=== PATIENT | male | born 1960 | race Caucasian/White ===

== ENCOUNTER 2016-08-21 19:09 | Emergency (ER) | payer OTHER ==
[~2016-08-21] VITALS: Ht 180.3 cm; Wt 107.2 kg
[~2016-08-21 19:09] MED LIST: ASPI81TA2 PO; CITA-51 PO; METO25TA6 PO; ONDA-55 PO; TAMS0.4C47 PO; TOPI100T43 PO
[2016-08-21 19:14] VITALS: Ht 180.3 cm; Wt 107.2 kg
--- OUTSIDE RECORDS SUMMARY | 2016-08-21 19:14 | XMS REPORT | Referral Summary ---
Author Author [facility] Organization [facility] Address Unknown Phone Unavailable Care Team Providers Care Director Script Name Role Phone Monique Holguin Primary Care Physician [phone] Encounter VC Date(s): 05/11/16 - 05/11/16 [facility] [address] [place] [id number] Discharge Diagnosis: Right foot pain Discharge Diagnosis: Gout Discharge Diagnosis: BPH with urinary obstruction Discharge Diagnosis: Urine incontinence Discharge Disposition: 01-Home or Self Care Attending Physician: Angel Holguin MD Admitting Physician: Angel Holguin MD Vital Signs Most recent to 1 oldest [Reference Range]: Peripheral Pulse 71 bpm Rate [60-100 bpm] (05/11/16 2:40 PM) Blood Pressure 120/70 mmHg [90-140/60-90 mmHg] (05/11/16 2:40 PM) Problem List Condition Effective Dates Status Health Status Informant Alcohol < 10/30/13 Resolved abuse(Confirmed) Anxiety(Confirmed) Active Anxiety(Confirmed) Active BPH (benign Active prostatic hyperplasia)(Confirm ed) CVA (cerebral < 11/07/13 Resolved infarction)(Confirme d) GERD Active (gastroesophageal reflux disease)(Confirmed) GERD Active (gastroesophageal reflux disease)(Confirmed) Gout(Confirmed) Active History of Active gout(Confirmed) History of Active migraine(Confirmed) H/O vitamin D Active deficiency(Confirmed ) Hemiplegia Active (disorder)(Confirmed )1 HTN Active (hypertension)(Confi rmed) hx of alcohol Resolved abuse(Confirmed) Hypercholesteremia(C < 10/30/13 Resolved onfirmed) Hyperlipidemia(Confi Active rmed) Hypertension(Confirm Active ed) Migraine(Confirmed) Active Depression(Confirmed Active ) Obese(Confirmed) < 10/30/13 Resolved Obesity(Confirmed) Active patient Post traumatic Active stress disorder (PTSD)(Confirmed) Depression(Confirmed Active ) 1Right hemiparetic s/p CVA 2013 Allergies, Adverse Reactions, Alerts No Known Allergies Medications acetaminophen 325 mg oral tablet 2 tabs, Oral, q6hr, as needed for pain, 0 Refill(s) Start Date: 11/08/13 Status: Ordered aspirin 81 mg, Oral, Daily, 0 Refill(s) Start Date: 12/09/15 Status: Ordered citalopram 40 mg oral tablet See Instructions, TAKE ONE TABLET BY MOUTH DAILY, # 30 tabs, 5 Refill(s), eRx: [facility] #[id number], TAKE ONE TABLET BY MOUTH DAILY Start Date: 11/11/15 Status: Ordered Flomax 0.4 mg oral capsule 0.4 mg 1 caps, Oral, Daily, # 30 caps, 6 Refill(s), Pharmacy: [facility] # [id number], 1 caps Oral Daily Start Date: 10/09/15 Status: Ordered meloxicam 15 mg oral tablet 15 mg 1 tabs, Oral, Daily, # 10 tabs, 0 Refill(s), Pharmacy: [facility] # [id number], 1 tabs Oral Daily Start Date: 05/11/16 Status: Ordered Metoprolol Tartrate 25 mg oral tablet 25 mg 1 tabs, Oral, BID, # 60 tabs, 6 Refill(s), Pharmacy: [facility] # [id number], 1 tabs Oral BID,x30 days Start Date: 12/18/15 Stop Date: 07/15/16 Status: Ordered ondansetron 4 mg oral tablet 4 mg 1 tabs, Oral, q8hr, as needed for nausea/vomiting, # 20 tabs, 0 Refill(s), Pharmacy: [facility] #[id number], 1 tabs Oral q8hr,PRN:as needed for nausea/ vomiting Start Date: 10/09/15 Status: Ordered topiramate 100 mg oral tablet 150 mg 1.5 tabs, Oral, BID, # 90 tabs, 6 Refill(s), Pharmacy: [facility] # [id number], 1.5 tabs Oral BID Start Date: 10/09/15 Status: Ordered Tums 500 mg oral tablet, chewable 2 tabs, Chewed, QID, 0 Refill(s) Start Date: 10/31/13 Status: Ordered Results Urinalysis Most recent to 1 oldest [Reference Range]: UA Color Yellow (05/11/16 3:48 PM) UA Appear Clear (05/11/16 3:48 PM) UA pH [5.0-8.0] 5.5 (05/11/16 3:48 PM) UA Leuk Est Negative [Negative] (05/11/16 3:48 PM) UA Nitrite Negative [Negative] (05/11/16 3:48 PM) UA Protein Negative [Negative] (05/11/16 3:48 PM) UA Glucose Negative [Negative] (05/11/16 3:48 PM) UA Ketones Negative [Negative] (05/11/16 3:48 PM) UA Urobilinogen 0.2 mg/dL [<1.0 mg/dL] (05/11/16 3:48 PM) UA Bili [Negative] Negative (05/11/16 3:48 PM) UA Blood [Negative] Negative (05/11/16 3:48 PM) UA Spec Grav 1.021 [1.003-1.030] (05/11/16 3:48 PM) Type Clean Catch (05/11/16 3:48 PM) Immunizations Given and Recorded Vaccine Date Status Refusal Reason tetanus/diphth/pertuss (Tdap) adult/adol 04/09/15 Given influenza virus vaccine, inactivated1 02/07/14 Recorded influenza virus vaccine, live 03/05/13 Given influenza virus vaccine, live 02/08/12 Given measles/mumps/rubella virus vaccine 03/05/05 Given tetanus/diphtheria/pertussis, acel(Tdap) 03/05/05 Recorded 1Result Comment: [02/07/2014] see scanned document Procedures Procedure Date Related Diagnosis Body Site COLORECTAL CANCER SCREENING; COLONOSCOPY ON 04/18/15 INDIVIDUAL NOT MEETING CRITERIA FOR HIGH RISK1 lap cholecystectomy 2013 Appendectomy Miscellaneous2 1Normal colonoscopy, repeat in 10 years 22 sinus surg Social History Social History Type Response Smoking Status Former smoker; Type: Cigarettes; Tobacco use per day: Less than Pack; Number of years: 11 1DC; 2011 Assessment and Plan Extracted from: Title: Acute OV-RT Foot Pain Author: Angel Holguin MD Date: 05/11/16 Impression and Plan Diagnosis BPH with urinary obstruction ([id number] N40.1, Discharge, Medical). Gout ([id number] M1A.9XX0, Discharge, Medical). Right foot pain ([id number] M79.671, Discharge, Medical). Urine incontinence ([id number] R32, Discharge, Medical). Orders Orders (Selected) Outpatient Orders Future (On Hold) Urinalysis with Culture if Indicated: Prescriptions Prescribed meloxicam 15 mg oral tablet: 15 mg=1 tabs, Oral, Daily, 10 tabs, 0 Refill(s).
--- OUTSIDE RECORDS SUMMARY | 2016-08-21 19:14 | XMS REPORT | Referral Summary ---
Author Author [facility] Organization [facility] Address Unknown Phone Unavailable Care Team Providers Care Laborer [employer]aging Name Role Phone Monique Holguin Primary Care Physician [phone] Encounter Date(s): 05/25/16 - 05/25/16 [facility] [address] [place], [place] [address] Discharge Diagnosis: BPH (benign prostatic hyperplasia) Discharge Disposition: 01-Home or Self Care Attending Physician: Curtis Hannah MD Admitting Physician: Curtis Hannah MD Vital Signs Most recent to 1 oldest [Reference Range]: Blood Pressure 110/72 mmHg [90-140/60-90 mmHg] (05/25/16 3:03 PM) Problem List Condition Effective Dates Status [...] DAILY, # 30 tabs, 5 Refill(s), eRx: [facility] #[id number], TAKE ONE TABLET BY MOUTH DAILY Start Date: 11/11/15 Status: Ordered Compazine 0 Refill(s) Start Date: 05/19/16 Status: Ordered Flomax 0.4 mg oral capsule 0.4 mg 1 caps, Oral, Daily, # 30 caps, 6 Refill(s), Pharmacy: [facility] # [id number], 1 caps Oral Daily Start Date: 10/09/15 Status: Ordered meloxicam 15 mg oral tablet 15 mg 1 tabs, Oral, Daily, # 10 tabs, 0 Refill(s), Pharmacy: [facility] # [id number], 1 tabs Oral Daily Start Date: 05/11/16 Status: Ordered Metoprolol Tartrate 25 mg oral tablet 25 mg 1 tabs, Oral, BID, # 60 tabs, 6 Refill(s), Pharmacy: [facility] # [id number], 1 tabs Oral BID,x30 days Start Date: 12/18/15 Stop Date: 07/15/16 Status: Ordered ondansetron 4 mg oral tablet 4 mg 1 tabs, Oral, q8hr, as needed for nausea/vomiting, # 20 tabs, 0 Refill(s), Pharmacy: [facility] #[id number], 1 tabs Oral q8hr,PRN:as needed for nausea/ vomiting Start Date: 10/09/15 Status: Ordered topiramate 100 mg oral tablet 150 mg 1.5 tabs, Oral, BID, # 90 tabs, 6 Refill(s), Pharmacy: [facility] # [id number], 1.5 tabs Oral BID Start Date: 10/09/15 Status: Ordered Tums 500 mg oral tablet, chewable 2 tabs, Chewed, QID, 0 Refill(s) Start Date: 10/31/13 Status: Ordered Results No data available for this section Immunizations Given and Recorded Vaccine Date Status Refusal Reason tetanus/diphth/pertuss (Tdap) adult/adol 04/09/15 Given influenza virus vaccine, inactivated1 02/07/14 Recorded influenza virus vaccine, live 03/05/13 Given influenza virus vaccine, live 02/08/12 Given measles/mumps/rubella virus vaccine 03/05/05 Given tetanus/diphtheria/pertussis, acel(Tdap) 03/05/05 Recorded 1Result Comment: [02/07/2014] see scanned document Procedures Procedure Date Related Diagnosis Body Site Cystourethroscopy (separate procedure).. 05/25/16 Simple uroflowmetry (UFR) (eg, stop-watch 05/25/16 flow rate, mechanical uroflowmeter).. COLORECTAL CANCER SCREENING; COLONOSCOPY ON 04/18/15 INDIVIDUAL NOT MEETING CRITERIA FOR HIGH RISK1 lap cholecystectomy 2013 Appendectomy Miscellaneous2 1Normal colonoscopy, repeat in 10 years 22 sinus surg Social History Social History Type Response Smoking Status Former smoker; Type: Cigarettes; Tobacco use per day: Less than Pack; Number of years: 11 1DC; 2011 Assessment and Plan Extracted from: Title: Office Visit Note Author: Curtis Hannah MD Date: 05/25/16 Assessment/Plan 55 yo M With LUTS secondary to BPH without any obstruction. 1.BPH (benign prostatic hyperplasia) Discussed the findings on cystoscopy and TRUS measurement. He had a jaffe shaped curve on uroflow PVR however he would like to have the TURP done to improve his dribbling. His biggest complaint is dribbling after urination. I explained to him that he may or not have improvement in his urination after the TURP procedure. Will schedule patient for green light laser TURP. Discussed the risks, benefits, alternatives and potential complications of the procedure, patient states understanding and is willing to proceed.
--- OUTSIDE RECORDS SUMMARY | 2016-08-21 19:14 | XMS REPORT | Continuity of Care Document ---
Author Author [facility] Organization [facility] Address Unknown Phone Unavailable Care Team Providers Care Wire Sawyer Name Role Phone SANDRA JASSO MD Primary Care Physician [phone] Insurance Providers Payer Name Policy Number Subscriber Name Relationship [facility] [id number] Luis Morgan 18 Self Problems Medical Problems Problem Onset Date Status Right hemiparesis Unknown Active Hypertension Unknown Active Hypercholesteremia Unknown Active Anxiety Unknown Active Depression Unknown Active History of stroke 02/28/2013 Active Gout attack Unknown Active Gout attack Unknown Active Migraine Unknown Active Migraine Unknown Active Migraine Unknown Active Sinusitis, acute frontal Unknown Active Hemiplegic migraine Unknown Active Hemiplegic migraine Unknown Active Acute urinary retention Unknown Active Adverse drug effect Unknown Active Migraine with aura and without status migrainosus, not intractable Unknown Active Migraine Unknown Active Surgical Problems Problem Onset Date Recorded Date/Time Status Acute calculous cholecystitis ~07/06/2013 07/08/2013 4:54pm Active Medications Medication Dose Route Sig Days/Qty Instructions Order Date Discontinued Date Status [Antidepressant] 08/08/09 02/28/13 Discontinued [B/P Med, Slows Hr] 08/08/09 02/28/13 Discontinued Nitroglycerin 1 Tab SL NEEDED 08/08/09 02/28/13 Discontinued [Reflux Med] 08/08/09 02/28/13 Discontinued Metoprolol Succinate 25 Mg PO DAILY 02/28/13 Active Citalopram Hydrobromide 60 Mg PO DAILY 02/28/13 Active [Plavix] 75 Mg PO DAILY 11/24/13 Active [Flomax] 0.4 PO DAILY 11/24/13 Active Hydrocodone/Acetaminophen 1-2 Tab PO Every 6 Hours PRN PAIN 30 Qty Active Topiramate 1 PO TWICE A DAY 12/19/13 Active Rizatriptan Benzoate 1 PO NEEDED 12/19/13 Active Pravastatin Sodium 20 Mg PO DAILY Take 1 tablet, by mouth, daily at bedtime. 12/19/13 Active Allopurinol 1 Tab PO DAILY 12/19/13 Active Lorazepam 0.5 Mg PO DAILY PRN ANXIETY 12/19/13 Active Social History Social History Problem Response Recorded Date/Time Hx Alcohol Use No 03/14/2014 9:30am Has the pt used tobacco in the last 12 months No 07/06/2013 8:06pm Tobacco Usage none 07/06/2013 1:32pm Query Response Start Date Stop Date Smoking Status Never smoker Hospital Discharge Instructions No hospital discharge instructions. Plan of Care No plan of care. Functional Status Query Response Date Recorded Physical Hygiene Self March 14, 2014 9:30am Disabilities Visual March 14, 2014 9:30am Devices Used Glasses March 14, 2014 9:30am Dressing Self March 14, 2014 9:30am Ambulation Self March 14, 2014 9:30am Diet Self March 14, 2014 9:30am Mental Status Alert Oriented March 14, 2014 9:30am Disabilities Visual March 14, 2014 9:30am Devices Used Glasses March 14, 2014 9:30am Physical Hygiene Self March 14, 2014 9:30am Dressing Self March 14, 2014 9:30am Ambulation Self March 14, 2014 9:30am Diet Self March 14, 2014 9:30am Allergies, Adverse Reactions, Alerts Allergen Type Severity Reaction Status Last Updated No Known Allergies Active 03/14/14 Immunizations Name Given Type Hx Influenza Vaccination Y FEB 2013 Historical Hx Pneumococcal Vaccination Y 2011 Historical Hx Tetanus, Diptheria, Pertussis < 5 YRS Historical Hx Influenza Vaccination Y FEB 2013 Historical Hx Tetanus, Diptheria, Pertussis < 5 YRS Historical Vital Signs Acute Vital Signs Vital Response Date/Time Temperature (Fahrenheit) 98.4 deg F (96.8 - 99.1) Temperature (Calculated Celsius) 36.48426 degrees C (36.0 - 37.3) Pulse Rate (adult) 76 bpm (60 - 100) Respiratory Rate 16 breaths/min (10 - 20) O2 Sat by Pulse Oximetry 96 % (90 - 100) Blood Pressure 136/84 mm Hg Height 5 ft 11 in Weight 238 lb Body Mass Index 33.0 kg/m^2 Results Test Source Date Result Interp. Ref. Range Comments Activated Partial Thromboplast Time February 28, 2013 7:20pm 33.8 SEC N 24-36 Alanine Aminotransferase (ALT/SGPT) July 07, 2013 4:49am 61 U/L N 21- 72 Albumin July 07, 2013 4:49am 3.9 G/DL N 3.5-5.0 Albumin/Globulin Ratio July 07, 2013 4:49am 1.5 RATIO N 1.1-2.2 Alkaline Phosphatase July 07, 2013 4:49am 64 U/L N 38-126 Amylase Level July 07, 2013 4:49am 60 U/L N 30-110 Anion Gap July 07, 2013 4:49am 10 MEQ/L N 5-15 Aspartate Amino Transf (AST/SGOT) July 07, 2013 4:49am 38 U/L N 17-59 B-Type Natriuretic Peptide August 08, 2009 9:25pm 20 PG/ML N 15-100 BUN/Creatinine Ratio July 07, 2013 4:49am 13 RATIO N 6-26 Basophils # (Auto) July 07, 2013 4:49am 0.0 T/MM3 N 0-0.2 Basophils (%) (Auto) July 07, 2013 4:49am 0.1 % N 0-2 Blood Urea Nitrogen July 07, 2013 4:49am 13.0 MG/DL N 9-20 Calcium Level July 07, 2013 4:49am 8.9 MG/DL N 8.4-10.2 Calculated Osmolality July 07, 2013 4:49am 274 MOSM/KG N 261-280 Carbon Dioxide Level July 07, 2013 4:49am 27 MEQ/L N 22-30 Chloride Level July 07, 2013 4:49am 105 MEQ/L N 98-107 Cholesterol Level March 01, 2013 4:15am 176 MG/DL N 132-199 Cholesterol/HDL Ratio March 01, 2013 4:15am 6.5 RATIO H 0-5.0 Creatinine July 07, 2013 4:49am 1.0 MG/DL N 0.8-1.5 Eosinophils # (Auto) July 07, 2013 4:49am 0.1 T/MM3 N 0-0.5 Eosinophils (%) (Auto) July 07, 2013 4:49am 0.6 % N 0-4 Globulin July 07, 2013 4:49am 2.6 G/DL N 2.4-3.6 Glucose Level July 07, 2013 4:49am 110 MG/DL N 75-110 Hematocrit July 07, 2013 4:49am 40.0 % L 41-53 Hemoglobin July 07, 2013 4:49am 14.0 GM/DL N 13.5-17.5 LDL Cholesterol, Calculated March 01, 2013 4:15am 111.4 N 66-159 Lipase July 07, 2013 4:49am 91 U/L N 23-300 Lymphocytes # (Auto) July 07, 2013 4:49am 1.7 T/MM3 N 1-4.8 Lymphocytes (%) (Auto) July 07, 2013 4:49am 15.1 % L 23-45 Mean Corpuscular Hemoglobin July 07, 2013 4:49am 31.5 UUG N 26-34 Mean Corpuscular Hemoglobin Concent July 07, 2013 4:49am 35.0 GM/DL N 31-37 Mean Corpuscular Volume July 07, 2013 4:49am 89.9 UM3 N 80-100 Mean Platelet Volume July 07, 2013 4:49am 10.4 UM3 N 9.4-12.4 Monocytes # (Auto) July 07, 2013 4:49am 1.0 T/MM3 H 0-0.8 Monocytes (%) (Auto) July 07, 2013 4:49am 8.8 % N 0-9.0 Neutrophils # (Auto) July 07, 2013 4:49am 8.4 T/MM3 H 1.8-7.7 Neutrophils (%) (Auto) July 07, 2013 4:49am 75.3 % H 33-66 Platelet Count July 07, 2013 4:49am 187 T/MM3 N 130-400 Potassium Level July 07, 2013 4:49am 3.8 MEQ/L N 3.6-5 Prolactin February 28, 2013 7:20pm 16.1 NG/ML - Normal Female (Non- ): 3.0-18.6 ng/ml;Males: 3.7-17.9 ng/ml Prothromb Time International Ratio February 28, 2013 7:20pm 0.97 N 0.86- 1.10 THERAPUTIC RANGE=2.00-3.00 FOR ANTI-THROMBOSIS THERAPUTIC RANGE=2.50- 3.50 FOR IMPLANTED VALVE RDW Standard Deviation July 07, 2013 4:49am 40.5 FL N 36.9-50.2 Red Blood Count July 07, 2013 4:49am 4.45 M/MM3 L 4.50-5.90 Sodium Level July 07, 2013 4:49am 142 MEQ/L N 134-144 Thyroid Stimulating Hormone (TSH) March 01, 2013 4:15am 1.16 MIU/L N 0.47-4.68 COMMENT blood in lab Total Bilirubin July 07, 2013 4:49am 0.60 MG/DL N 0.20-1.30 Total Protein July 07, 2013 4:49am 6.5 G/DL N 6.3-8.2 Triglycerides Level March 01, 2013 4:15am 188 MG/DL H 40-160 Troponin I February 28, 2013 7:20pm < 0.012 ng/ml 0-0.12 Uric Acid December 14, 2013 9:08am 5.1 MG/DL N 3.5-8.5 Urine Bilirubin July 07, 2013 2:10am Negative - Has specimen been collected/obtained? Y Urine Blood July 07, 2013 2:10am Negative - Has specimen been collected/obtained? Y Urine Collection Type July 07, 2013 2:10am Cleancatch-midstream - Has specimen been collected/obtained? Y Urine Color July 07, 2013 2:10am Yellow - Has specimen been collected/obtained? Y Urine Glucose (UA) July 07, 2013 2:10am Negative - Has specimen been collected/obtained? Y Urine Ketones July 07, 2013 2:10am Negative - Has specimen been collected/obtained? Y Urine Leukocyte Esterase July 07, 2013 2:10am Negative - Has specimen been collected/obtained? Y Urine Nitrite July 07, 2013 2:10am Negative - Has specimen been collected/obtained? Y Urine Protein July 07, 2013 2:10am Trace H - Has specimen been collected/obtained? Y Urine Specific [place] July 07, 2013 2:10am 1.010 L - Has specimen been collected/obtained? Y Urine Turbidity July 07, 2013 2:10am Clear - Has specimen been collected/obtained? Y Urine Urobilinogen July 07, 2013 2:10am 1.0 EU/DL - Has specimen been collected/obtained? Y Urine pH July 07, 2013 2:10am 7.5 - Has specimen been collected/ obtained? Y VLDL Cholesterol March 01, 2013 4:15am 37.6 MG/DL H 0-28 White Blood Count July 07, 2013 4:49am 11.1 T/MM3 H 4.5-11.0 Chemistry Specimen Hemolysis July 07, 2013 4:49am < 15 0-25 0-25: No Hemolysis.26-70: Slight Hemolysis - can falsely elevate K and Urine Protein. 71-285: Moderate Hemolysis - can falsely elevate K, Troponin I, CA 19-9, PTH, CSF GLucose, and Urine Protein, and can falsely decrease Phenytoin. 286-999: Gross Hemolysis - can falsely elevate K, Troponin I, CA 19-9, PTH, CSF Glucose, and Urine Protine, and can falsely decrease Phenytoin. Recommend specimen recollection. Urinalysis Comment July 07, 2013 2:10am Microscopic not ind. - Has specimen been collected/obtained? Y Glucometer February 28, 2013 7:31pm 79 mg/dL N 75-110 Lab Scanned Report December 14, 2013 12:55pm LAB TEST FORM REQUEST [id number] - HDL Cholesterol Direct March 01, 2013 4:15am 27 MG/DL L 40-60 Turbidity July 07, 2013 4:49am < 20 0-20 Glomerular Filtration Rate Calc July 07, 2013 4:49am 79 - Immature Granulocyte # (Auto) July 07, 2013 4:49am 0.01 T/MM3 N 0.00- 0.03 Immature Granulocyte % (Auto) July 07, 2013 4:49am 0.1 % N 0.0-0.5 Icterus Index July 07, 2013 4:49am < 2 0-7 ZC-Jpu-A-Type Natriuretic Peptide May 06, 2011 8:22am 68 PG/ML N 0- 175 Rule in cut points: <50 years old=450; 50-75 years old=900; >75 years old=1800; When utilizing ProBNP rule-in cut points, adjustment for impaired renal function is typically not required. Name: LUIS MORGAN Unit #: [id number] : 1960 Sex: M Loc / Svc: ED DOS: 01/13/14 Signed Report #: [id number] DIAGNOSTIC IMAGING REPORT TYPE OF EXAM: CT HEAD W/O CONTRAST Dictated By: BRAEDEN MALDONADO MD INDICATION: ITS.REASON: headache CT HEAD W/O CONTRAST: Comparison: February 28, 2013 Technique: Axial CT images through the head were performed without contrast. FINDINGS: The ventricles are of normal size, shape, and contour for the patient 's age. There are scattered areas of low attenuation in the white matter which most likely represent changes from chronic microvascular ischemia. The brainstem, cerebellum, and cerebral hemispheres otherwise have a normal morphology and CT attenuation. There is no evidence of midline displacement. No hemorrhage , signs of acute territorial stroke, mass effect, mass lesions, or edema is evident. The visualized portions of the skull base, midface, and calvarium demonstrate no abnormality. Acute air-fluid level in the frontal sinus. The tympanic and mastoid cavities appear normal. IMPRESSION: No acute intracranial abnormality or hemorrhage. Frontal sinusitis. There is a preliminary report by virtual radiologic. . Procedures Procedure Status Date Provider(s) THER/PROPH/DIAG INJ SC/IM completed 12/19/13 THER/PROPH/DIAG INJ SC/IM completed 12/19/13 THER/PROPH/DIAG INJ IV PUSH completed 01/28/14 TX/PRO/DX INJ NEW DRUG ADDON completed 01/28/14 TX/PRO/DX INJ NEW DRUG ADDON completed 01/28/14 TX/PRO/DX INJ NEW DRUG ADDON completed 01/28/14 TX/PRO/DX INJ SAME DRUG COMMUNITY RELATIONS OFFICER completed 01/28/14 THER/PROPH/DIAG IV INF INIT completed 02/17/14 TX/PRO/DX INJ NEW DRUG ADDON completed 02/17/14 TX/PRO/DX INJ NEW DRUG ADDON completed 02/17/14 TX/PRO/DX INJ NEW DRUG ADDON completed 02/17/14 EMERGENCY DEPT VISIT completed 02/17/14 [id number]"INJECTION, PROCHLORPERAZINE, UP TO 10 MG" completed 02/17/14"INJECTION, HYDROMORPHONE, UP TO 4 MG" completed 02/17/14 [id number]"INJECTION, KETOROLAC TROMETHAMINE, PER 15 MG" completed 02/17/14"INJECTION, MAGNESIUM SULFATE, PER 500 MG" completed 02/17/14"INFUSION, NORMAL SALINE SOLUTION , 250 CC" completed 02/17/14 Encounters Encounter Location Date/Time Departed Emergency Room [facility] 03/14/14 7:07am Departed Emergency Room [facility] 02/17/14 10:25am Departed Emergency Room [facility] 01/28/14 12:57pm Departed Emergency Room [facility] 01/13/14 2:10pm Departed Emergency Room [facility] 12/19/13 7:00pm Registered Clinic [facility] 12/14/13 9:17am Recent Diagnosis
--- OUTSIDE RECORDS SUMMARY | 2016-08-21 19:14 | XMS REPORT | Referral Summary ---
Author Author [facility] Organization [facility] Address Unknown Phone Unavailable Care Team Providers Care Cctv Technician Name Role Phone Monique Holguin Primary Care Physician [phone] Encounter VC Date(s): 01/19/16 - 01/19/16 [facility] [address] [place], [place] [address] Discharge Disposition: 01-Home or Self Care Attending Physician: Javon Sanabria MD Vital Signs No data available for this section Problem List Condition Effective Dates Status Health [...] DAILY, # 30 tabs, 5 Refill(s), eRx: [facility] #[id number], TAKE ONE TABLET BY MOUTH DAILY Start Date: 11/11/15 Status: Ordered Flomax 0.4 mg oral capsule 0.4 mg 1 caps, Oral, Daily, # 30 caps, 6 Refill(s), Pharmacy: [facility] # [id number], 1 caps Oral Daily Start Date: 10/09/15 Status: Ordered Metoprolol Tartrate 25 mg oral tablet 25 mg 1 tabs, Oral, BID, # 60 tabs, 6 Refill(s), Pharmacy: [facility] # [id number], 1 tabs Oral BID,x30 days Start Date: 12/18/15 Stop Date: 07/15/16 Status: Ordered ondansetron 4 mg oral tablet 4 mg 1 tabs, Oral, q8hr, as needed for nausea/vomiting, # 20 tabs, 0 Refill(s), Pharmacy: [facility] #[id number], 1 tabs Oral q8hr,PRN:as needed for nausea/ vomiting Start Date: 10/09/15 Status: Ordered topiramate 100 mg oral tablet 150 mg 1.5 tabs, Oral, BID, # 90 tabs, 6 Refill(s), Pharmacy: [facility] # [id number], 1.5 tabs Oral BID Start Date: 10/09/15 Status: Ordered traMADol 50 mg oral tablet 50 mg 1 tabs, Oral, q6hr, # 6 tabs, 0 Refill(s) Start Date: 01/02/16 Stop Date: 01/30/16 Status: Ordered Tums 500 mg oral tablet, chewable 2 tabs, Chewed, QID, 0 Refill(s) Start Date: 10/31/13 Status: Ordered Results No data available for this section Immunizations Vaccine Date Refusal Reason tetanus/diphth/pertuss (Tdap) adult/adol 04/09/15 influenza virus vaccine, inactivated1 02/07/14 influenza virus vaccine, live 03/05/13 influenza virus vaccine, live 02/08/12 measles/mumps/rubella virus vaccine 03/05/05 tetanus/diphtheria/pertussis, acel(Tdap) 03/05/05 1Result Comment: [02/07/2014] see scanned document Procedures Procedure Date Related Diagnosis Body Site COLORECTAL CANCER SCREENING; COLONOSCOPY ON 04/18/15 INDIVIDUAL NOT MEETING CRITERIA FOR HIGH RISK1 lap cholecystectomy 2014 Appendectomy Miscellaneous2 1Normal colonoscopy, repeat in 10 years 22 sinus surg Social History Social History Type Response Smoking Status Former smoker; Type: Cigarettes; Tobacco use per day: Less than Pack; Number of years: 11 1DC; 2011 Assessment and Plan No data available for this section
--- OUTSIDE RECORDS SUMMARY | 2016-08-21 19:14 | XMS REPORT | Continuity of Care Document ---
Author Author [facility] Organization [facility] Address Unknown Phone Unavailable Care Team Providers Care Bond Underwriter Name Role Phone SANDRA JASSO MD Primary Care Physician [phone] Insurance Providers Payer Name Policy Number Subscriber Name Relationship [facility] [id number] Luis Morgan 20 Self Advance Directives Directive Response Recorded Date/Time Advanced Directives Type None 01/28/14 1:00pm Problems Medical Problems Problem Onset Date Status Right hemiparesis Unknown Active Hypertension Unknown Active Hypercholesteremia Unknown Active Anxiety Unknown Active Depression Unknown Active History of stroke 02/28/2013 Active Gout attack Unknown Active Gout attack Unknown Active Migraine Unknown Active Migraine Unknown Active Migraine Unknown Active Sinusitis, acute frontal Unknown Active Hemiplegic migraine Unknown Active Hemiplegic migraine Unknown Active Surgical Problems Problem Onset Date [...] History Social History Problem Response Recorded Date/Time Smoking Status Light Smoker 01/28/2014 1:54pm Hx Alcohol Use No 01/28/2014 1:54pm Has the pt used tobacco in the last 12 months No 07/06/2013 8:06pm Query Response Start Date Stop Date Smoking Status Former smoker Hospital Discharge Instructions No hospital discharge instructions. Plan of Care No plan of care. Functional Status Query Response Date Recorded Physical Hygiene Self January 28, 2014 1:54pm Disabilities None January 28, 2014 1:54pm Devices Used Glasses January 28, 2014 1:54pm Dressing Self January 28, 2014 1:54pm Ambulation Self January 28, 2014 1:54pm Diet Self January 28, 2014 1:54pm Mental Status Alert Oriented January 28, 2014 3:44pm Disabilities None January 28, 2014 1:54pm Devices Used Glasses January 28, 2014 1:54pm Physical Hygiene Self January 28, 2014 1:54pm Dressing Self January 28, 2014 1:54pm Ambulation Self January 28, 2014 1:54pm Diet Self January 28, 2014 1:54pm Allergies, Adverse Reactions, Alerts Allergen Type Severity Reaction Status Last Updated No Known Allergies Active 01/28/14 Immunizations Name Given Type Hx Influenza Vaccination Y FEB 2013 Historical Hx Pneumococcal Vaccination Y 2011 Historical Hx Tetanus, Diptheria, Pertussis < 5 YRS Historical Hx Influenza Vaccination Y FEB 2013 Historical Hx Tetanus, Diptheria, Pertussis < 5 YRS Historical Vital Signs Acute Vital Signs Vital Response Date/Time Temperature (Fahrenheit) 98.3 deg F (96.8 - 99.1) Temperature (Calculated Celsius) 36.11250 degrees C (36.0 - 37.3) Pulse Rate (adult) 69 bpm (60 - 100) Respiratory Rate 18 breaths/min (10 - 20) O2 Sat by Pulse Oximetry 96 % (90 - 100) Blood Pressure 111/61 mm Hg Height 5 ft 11 in Weight 239 lb Body Mass Index 33.0 kg/m^2 Results [...] Has specimen been collected/obtained? Y Urine Specific [place] July 07, 2013 2:10am 1.010 L - [...] 14, 2013 12:55pm LAB TEST FORM REQUEST [id number] - HDL Cholesterol Direct March 01, 2013 [...] July 07, 2013 4:49am < 2 0-7 PZ-Ufg-S-Type Natriuretic Peptide May 06, 2011 8:22am 68 PG/ML N 0- 175 Rule in cut points: <50 years old=450; 50-75 years old=900; >75 years old=1800; When utilizing ProBNP rule-in cut points, adjustment for impaired renal function is typically not required. Name: LUIS MORGAN Unit #: [id number] : 1960 Sex: M Loc / Svc: ED DOS: 01/13/14 Signed Report #: [id number] DIAGNOSTIC IMAGING REPORT TYPE OF EXAM: CT [...] sinusitis. There is a preliminary report by [facility]. . Procedures Procedure Status Date Provider(s) THER/PROPH/DIAG INJ SC/IM completed 11/24/13 THER/PROPH/DIAG INJ SC/IM completed 12/19/13 THER/PROPH/DIAG INJ SC/IM completed 12/19/13 Encounters Encounter Location Date/Time Departed Emergency Room [facility] 01/28/14 12:57pm Departed Emergency Room [facility] 01/13/14 2:10pm Departed Emergency Room [facility] 12/19/13 7:00pm Registered Clinic [facility] 12/14/13 9:17am Departed Emergency Room [facility] 11/24/13 3:36am Recent Diagnosis
--- OUTSIDE RECORDS SUMMARY | 2016-08-21 19:15 | XMS REPORT | Referral Summary ---
Author Author [facility] Organization [facility] Address Unknown Phone Unavailable Care Team Providers Care Ranch Manager Name Role Phone Monique Holguin Primary Care Physician [phone] Encounter VC Date(s): 01/08/16 - 01/08/16 [facility] [address] [place], [place] [address] Discharge Disposition: 01-Home or Self Care Attending Physician: Javon Sanabria MD Admitting Physician: Javon Sanabria MD Referring Physician: Javon Sanabria MD Vital Signs No [...] DAILY, # 30 tabs, 5 Refill(s), eRx: [facility] #[id number], TAKE ONE TABLET BY MOUTH DAILY Start Date: 11/11/15 Status: Ordered Flomax 0.4 mg oral capsule 0.4 mg 1 caps, Oral, Daily, # 30 caps, 6 Refill(s), Pharmacy: [facility] # [id number], 1 caps Oral Daily Start Date: 10/09/15 Status: Ordered Metoprolol Tartrate 25 mg oral tablet 25 mg 1 tabs, Oral, BID, # 60 tabs, 6 Refill(s), Pharmacy: [facility] # [id number], 1 tabs Oral BID,x30 days Start Date: 12/18/15 Stop Date: 07/15/16 Status: Ordered ondansetron 4 mg oral tablet 4 mg 1 tabs, Oral, q8hr, as needed for nausea/vomiting, # 20 tabs, 0 Refill(s), Pharmacy: [facility] #[id number], 1 tabs Oral q8hr,PRN:as needed for nausea/ vomiting Start Date: 10/09/15 Status: Ordered topiramate 100 mg oral tablet 150 mg 1.5 tabs, Oral, BID, # 90 tabs, 6 Refill(s), Pharmacy: [facility] # [id number], 1.5 tabs Oral BID Start Date: 10/09/15 [...]
--- OUTSIDE RECORDS SUMMARY | 2016-08-21 19:16 | XMS REPORT | Continuity of Care Document ---
Author Author [facility] Organization [facility] Address Unknown Phone Unavailable Support Name Relationship Address Phone ELISEO LEIGH MD Caregiver [address] [place] [address] [phone] SANDRA JASSO MD Caregiver [address] [place] [address] [phone] AMIE BASS MD Caregiver [address] [place] [address] [place] [id number] AYAKA MORGAN Next Of Kin [address] [place] [address] Insurance Providers Payer Name Policy Number Subscriber Name Relationship [facility] [id number] Luis Morgan 20 Self Advance Directives Directive Response Recorded Date/Time Advanced Directives Type None 06/16/14 12:30pm Problems Medical Problems Problem Onset Date Status [...] not intractable Unknown Active Migraine Unknown Active Hemiplegic migraine Unknown Active Surgical [...] Active [Flomax] 0.4 PO DAILY 11/24/13 Active Topiramate 1 PO TWICE A DAY 12/19/13 Active Rizatriptan Benzoate 1 PO NEEDED 12/19/13 Active Pravastatin Sodium 20 Mg PO DAILY Take 1 tablet, by mouth, daily at bedtime. 12/19/13 Active Allopurinol 1 Tab PO DAILY 12/19/13 Active Lorazepam 0.5 Mg PO DAILY PRN ANXIETY 12/19/13 Active Isomethept/Dichlphn/Acetaminop 1 Cap PO NEEDED 30 Qty 06/16/14 Active Social History Social History Problem Response Recorded Date/Time Hx Alcohol Use No 06/16/2014 1:07pm Has the pt used tobacco in the last 12 months No 07/06/2013 8:06pm Tobacco Usage none 07/06/2013 1:32pm Query Response Start Date Stop Date Smoking Status Never smoker Hospital Discharge Instructions No hospital discharge instructions. Plan of Care No plan of care. Functional Status Query Response Date Recorded Physical Hygiene Self June 16, 2014 1:07pm Disabilities None June 16, 2014 1:07pm Devices Used None June 16, 2014 1:07pm Dressing Self June 16, 2014 1:07pm Ambulation Self June 16, 2014 1:07pm Diet Self June 16, 2014 1:07pm Mental Status Alert Oriented June 16, 2014 2:09pm Disabilities None June 16, 2014 1:07pm Devices Used None June 16, 2014 1:07pm Physical Hygiene Self June 16, 2014 1:07pm Dressing Self June 16, 2014 1:07pm Ambulation Self June 16, 2014 1:07pm Diet Self June 16, 2014 1:07pm Allergies, Adverse Reactions, Alerts Allergen Type Severity Reaction Status Last Updated No Known Allergies Active 03/14/14 Immunizations Name Given Type Hx Influenza Vaccination Yes Historical Hx Pneumococcal Vaccination Y 2011 Historical Hx Tetanus, Diptheria, Pertussis < 5 YRS Historical Hx Influenza Vaccination Yes Historical Hx Tetanus, Diptheria, Pertussis < 5 YRS Historical Vital Signs Acute Vital Signs Vital Response Date/Time Temperature (Fahrenheit) 98.8 deg F (96.8 - 99.1) Temperature (Calculated Celsius) 37.17701 degrees C (36.0 - 37.3) Pulse Rate (adult) 86 bpm (60 - 100) Respiratory Rate 16 breaths/min (10 - 20) O2 Sat by Pulse Oximetry 96 % (90 - 100) Blood Pressure 121/70 mm Hg Height 5 ft 11 in Weight 231 lb Body Mass Index 32.0 kg/m^2 Results Test Source Date Result Interp. Ref. Range Comments Activated Partial Thromboplast Time February 28, 2013 7:20pm 33.8 SEC N 24-36 Alanine Aminotransferase (ALT/SGPT) June 16, 2014 12:29pm 53 U/L N 21- 72 Albumin June 16, 2014 12:29pm 4.6 G/DL N 3.5-5.0 Albumin/Globulin Ratio June 16, 2014 12:29pm 1.5 RATIO N 1.1-2.2 Alkaline Phosphatase June 16, 2014 12:29pm 82 U/L N 38-126 Amylase Level July 07, 2013 4:49am 60 U/L N 30-110 Anion Gap June 16, 2014 12:29pm 16 MEQ/L H 5-15 Aspartate Amino Transf (AST/SGOT) June 16, 2014 12:29pm 28 U/L N 17-59 B-Type Natriuretic Peptide August 08, 2009 9:25pm 20 PG/ML N 15-100 BUN/Creatinine Ratio June 16, 2014 12:29pm 9 RATIO N 6-26 Basophils # (Auto) June 16, 2014 12:29pm 0.0 T/MM3 N 0-0.2 Basophils (%) (Auto) June 16, 2014 12:29pm 0.3 % N 0-2 Blood Urea Nitrogen June 16, 2014 12:29pm 9.0 MG/DL N 9-20 Calcium Level June 16, 2014 12:29pm 9.7 MG/DL N 8.4-10.2 Calculated Osmolality June 16, 2014 12:29pm 281 MOSM/KG H 261-280 Carbon Dioxide Level June 16, 2014 12:29pm 20 MEQ/L L 22-30 Chemistry Specimen Hemolysis June 16, 2014 12:29pm < 15 0-25 0-25: No Hemolysis.26-70: Slight [...] can falsely decrease Phenytoin. Recommend specimen recollection. Chloride Level June 16, 2014 12:29pm 110 MEQ/L H 98-107 Cholesterol Level March 01, 2013 4:15am 176 MG/DL N 132-199 Cholesterol/HDL Ratio March 01, 2013 4:15am 6.5 RATIO H 0-5.0 Creatinine June 16, 2014 12:29pm 1.0 MG/DL N 0.8-1.5 Eosinophils # (Auto) June 16, 2014 12:29pm 0.1 T/MM3 N 0-0.5 Eosinophils (%) (Auto) June 16, 2014 12:29pm 1.3 % N 0-4 Globulin June 16, 2014 12:29pm 3.1 G/DL N 2.4-3.6 Glomerular Filtration Rate Calc June 16, 2014 12:29pm 79 - Glucometer February 28, 2013 7:31pm 79 mg/dL N 75-110 Glucose Level June 16, 2014 12:29pm 108 MG/DL N 75-110 HDL Cholesterol Direct March 01, 2013 4:15am 27 MG/DL L 40-60 Hematocrit June 16, 2014 12:29pm 43.2 % N 41-53 Hemoglobin June 16, 2014 12:29pm 15.4 GM/DL N 13.5-17.5 Icterus Index June 16, 2014 12:29pm < 2 0-7 Immature Granulocyte # (Auto) June 16, 2014 12:29pm 0.02 T/MM3 N 0.00- 0.03 Immature Granulocyte % (Auto) June 16, 2014 12:29pm 0.2 % N 0.0-0.5 LDL Cholesterol, Calculated March 01, 2013 4:15am 111.4 N 66-159 Lab Scanned Report December 14, 2013 12:55pm LAB TEST FORM REQUEST [id number] - Lipase July 07, 2013 4:49am 91 U/L N 23-300 Lymphocytes # (Auto) June 16, 2014 12:29pm 1.8 T/MM3 N 1-4.8 Lymphocytes (%) (Auto) June 16, 2014 12:29pm 20.0 % L 23-45 Mean Corpuscular Hemoglobin June 16, 2014 12:29pm 31.5 UUG N 26-34 Mean Corpuscular Hemoglobin Concent June 16, 2014 12:29pm 35.6 GM/DL N 31-37 Mean Corpuscular Volume June 16, 2014 12:29pm 88.3 UM3 N 80-100 Mean Platelet Volume June 16, 2014 12:29pm 10.3 UM3 N 9.4-12.4 Monocytes # (Auto) June 16, 2014 12:29pm 0.5 T/MM3 N 0-0.8 Monocytes (%) (Auto) June 16, 2014 12:29pm 5.9 % N 0-9.0 PQ-Pwd-V-Type Natriuretic Peptide June 16, 2014 12:29pm 52 PG/ML N 0- 175 Rule in cut points: <50 years old=450; 50-75 years old=900; >75 years old=1800; When utilizing ProBNP rule-in cut points, adjustment for impaired renal function is typically not required. Neutrophils # (Auto) June 16, 2014 12:29pm 6.5 T/MM3 N 1.8-7.7 Neutrophils (%) (Auto) June 16, 2014 12:29pm 72.3 % H 33-66 Platelet Count June 16, 2014 12:29pm 199 T/MM3 N 130-400 Potassium Level June 16, 2014 12:29pm 3.8 MEQ/L N 3.6-5 Prolactin February 28, 2013 7:20pm 16.1 NG/ML - Normal Female (Non- ): 3.0-18.6 ng/ml;Males: 3.7-17.9 ng/ml Prothromb Time International Ratio February 28, 2013 7:20pm 0.97 N 0.86- 1.10 THERAPUTIC RANGE=2.00-3.00 FOR ANTI-THROMBOSIS THERAPUTIC RANGE=2.50- 3.50 FOR IMPLANTED VALVE RDW Standard Deviation June 16, 2014 12:29pm 40.7 FL N 36.9-50.2 Red Blood Count June 16, 2014 12:29pm 4.89 M/MM3 N 4.50-5.90 Sodium Level June 16, 2014 12:29pm 146 MEQ/L H 134-144 Thyroid Stimulating Hormone (TSH) March 01, 2013 4:15am 1.16 MIU/L N 0.47-4.68 COMMENT blood in lab Total Bilirubin June 16, 2014 12:29pm 0.50 MG/DL N 0.20-1.30 Total Protein June 16, 2014 12:29pm 7.7 G/DL N 6.3-8.2 Triglycerides Level March 01, 2013 4:15am 188 MG/DL H 40-160 Troponin I June 16, 2014 12:29pm < 0.012 ng/ml 0-0.12 Turbidity June 16, 2014 12:29pm < 20 0-20 Uric Acid December 14, 2013 9:08am 5.1 MG/DL N 3.5-8.5 Urinalysis Comment July 07, 2013 2:10am Microscopic not ind. - Has specimen been collected/obtained? Y Urine Bilirubin July 07, 2013 2:10am Negative [...] Has specimen been collected/obtained? Y Urine Specific [place] July 07, 2013 2:10am 1.010 L - [...] 37.6 MG/DL H 0-28 White Blood Count June 16, 2014 12:29pm 9.1 T/MM3 N 4.5-11.0 Name: LUIS MORGAN Unit #: [id number] : 1960 Sex: M Loc / Svc: ED DOS: 06/16/14 Signed Report #: [id number] DIAGNOSTIC IMAGING REPORT TYPE OF EXAM: CT HEAD W/O CONTRAST Dictated By: BRAEDEN MALDONADO MD Indication: ITS.REASON: left-sided weakness stroke CT HEAD W/O CONTRAST: Comparison: January 13, 2014 Technique: Axial CT images through the head were performed without contrast. FINDINGS: The ventricles are of normal size, shape, and contour for the patient's age. The brainstem, cerebellum, and cerebral hemispheres have a normal morphology and CT attenuation. There is no evidence of midline displacement. No hemorrhage, signs of acute territorial stroke, mass effect, mass lesions, or edema is evident. The visualized portions of the skull base, midface, and calvarium demonstrate no abnormality. Trace left mastoid and frontal sinus fluid. IMPRESSION: No acute intracranial abnormality or hemorrhage. There is a preliminary report by [facility]. . Procedures No known history of procedures. Encounters Encounter Location Date/Time Departed Emergency Room [facility] 06/16/14 12:07pm Recent Diagnosis
--- OUTSIDE RECORDS SUMMARY | 2016-08-21 19:17 | XMS REPORT | Referral Summary ---
Author Author [facility] Organization [facility] Address Unknown Phone Unavailable Care Team Providers Care Banking Representative Name Role Phone Monique Holguin Primary Care Physician [phone] Encounter VC Date(s): 01/19/16 - 01/19/16 [facility] [address] [place] [id number] Discharge Diagnosis: Weight loss Discharge Diagnosis: Palpitations Discharge Diagnosis: Memory intact Discharge Disposition: 01-Home or Self Care Attending Physician: Angel Holguin MD Admitting Physician: Angel Holguin MD Vital Signs Most recent to 1 oldest [Reference Range]: Temperature Tympanic 36.2 degC [36.6-38.1 degC] *LOW* (01/19/16 4:24 PM) Peripheral Pulse 62 bpm Rate [60-100 bpm] (01/19/16 4:24 PM) Blood Pressure 119/78 mmHg [90-140/60-90 mmHg] (01/19/16 4:24 PM) Problem List Condition Effective Dates Status [...] DAILY, # 30 tabs, 5 Refill(s), eRx: [facility] #[id number], TAKE ONE TABLET BY MOUTH DAILY Start Date: 11/11/15 Status: Ordered Flomax 0.4 mg oral capsule 0.4 mg 1 caps, Oral, Daily, # 30 caps, 6 Refill(s), Pharmacy: [facility] # [id number], 1 caps Oral Daily Start Date: 10/09/15 Status: Ordered Metoprolol Tartrate 25 mg oral tablet 25 mg 1 tabs, Oral, BID, # 60 tabs, 6 Refill(s), Pharmacy: [facility] # [id number], 1 tabs Oral BID,x30 days Start Date: 12/18/15 Stop Date: 07/15/16 Status: Ordered ondansetron 4 mg oral tablet 4 mg 1 tabs, Oral, q8hr, as needed for nausea/vomiting, # 20 tabs, 0 Refill(s), Pharmacy: [facility] #[id number], 1 tabs Oral q8hr,PRN:as needed for nausea/ vomiting Start Date: 10/09/15 Status: Ordered topiramate 100 mg oral tablet 150 mg 1.5 tabs, Oral, BID, # 90 tabs, 6 Refill(s), Pharmacy: [facility] # [id number], 1.5 tabs Oral BID Start Date: 10/09/15 [...] 2011 Assessment and Plan Extracted from: Title: 1 Month Follow Up Author: Angel Holguin MD Date: 01/19/16 Impression and Plan Diagnosis Weight loss ([id number] R63.4, Discharge, Medical). Memory intact ([id number]-CK Z78.9, Discharge, Medical). Palpitations (OID88-AY R00.2, Discharge, Medical). Orders Orders (Selected) Prescriptions Prescribed Metoprolol Tartrate 25 mg oral tablet: 25 mg=1 tabs, Oral, BID, for 30 days, 60 tabs, 6 Refill(s).
--- OUTSIDE RECORDS SUMMARY | 2016-08-21 19:17 | XMS REPORT | Continuity of Care Document ---
Author Author [facility] Organization [facility] Address Unknown Phone Unavailable Allergies Active Description Code Type Severity Reaction Onset Reported/Identified Relationship to Patient Clinical Status Yes No Known Allergies No Known Allergies Drug Allergy Unknown N/A 10/01/2013 Yes iodine NKMA N/A Adverse Reaction 11/08/2013 Yes No Known Medication Allergies NKMA N/A N/A 11/08/2013 Yes No Known Allergies NKMA N/A N/A 12/17/2013 Medications Problems Date Dx Coded Attending Type Code Diagnosis Diagnosed By 10/01/2013 Kendal Aguila MD 272.4 HYPERLIPIDEMIA NEC/NOS 10/01/2013 Kendal Aguila MD 275.2 DIS MAGNESIUM METABOLISM 10/01/2013 Kendal Aguila MD 275.41 HYPOCALCEMIA 10/01/2013 Kendal Aguila MD 276.8 HYPOPOTASSEMIA 10/01/2013 Kendal Aguila MD 300.00 ANXIETY STATE NOS 10/01/2013 Kendal Aguila MD 309.81 POSTTRAUMATIC STRESS DISORDER 10/01/2013 Kendal Aguila MD 311 DEPRESSIVE DISORDER NEC 10/01/2013 Kendal Aguila MD 342.90 UNSPEC HEMIPLEGIA HEMIPARESIS UNSPEC SIDE 10/01/2013 Kendal Aguila MD 401.9 HYPERTENSION NOS 10/01/2013 Kendal Aguila MD 434.91 CEREBRAL ART OCCLUSION NOS W CEREBRAL INFARCTION 10/01/2013 Kendal Aguila MD 729.89 MUSCSKEL SYMPT LIMB NEC 10/01/2013 Kendal Aguila MD 785.0 TACHYCARDIA NOS 10/01/2013 Kendal Aguila MD 788.20 RETENTION OF URINE NOS 10/01/2013 Kendal Aguila MD V15.82 HISTORY OF TOBACCO USE 10/01/2013 Kendal Aguila MD V45.88 STAT POST ADMIN TPA,RTPA IN DIF FAC W/IN 24HRS FRAME TENDER 10/01/2013 Kendal Aguila MD V58.66 LONG-TERM (CURRENT) USE OF ASPIRIN Procedures Code Description Performed By Performed On 57.94 INSERT INDWELLING CATH Ayla SAMANO, Kendal Andrade 10/01/2013 Results Test Result Range CHEM/HEM PROFILE-BEDSIDE - 10/01/13 15:14 POTASSIUM 3.2 mmol/L 3.5-5.3 METHOD Bedside ANION GAP 17 mmol/L 10-20 METHOD Bedside GLUCOSE 100 mg/dL 70-99 BLOOD UREA NITROGEN 10 mg/dL 7-20 CREATININE 1.2 mg/dL 0.8-1.3 HEMOGLOBIN 15.6 gm/dL 14.0-18.0 HEMATOCRIT 46.0 % 40.0-54.0 SODIUM 142 mmol/L 135-148 CHLORIDE 108 mmol/L 98-110 CARBON DIOXIDE 21 mmol/L 21-32 CALCIUM IONIZED 4.1 mg/dL 4.5-5.3 TROPONIN I BEDSIDE - 10/01/13 15:17 METHOD Bedside TROPONIN I < 0.04 ng/mL < 0.11 CBC W/DIFF - 10/01/13 15:20 EOSINOPHIL # 0.1 k/cumm 0.1-0.5 EOSINOPHIL % 1 % 2-4 GRANULOCYTE # 5.1 k/cumm 2.0-9.0 GRANULOCYTE % 58 % 50-75 LYMPHOCYTE # 2.7 k/cumm 1.0-4.0 LYMPHOCYTE % 31 % 20-30 MEAN CELL HGB 31.1 pg 27.0-33.0 MEAN CELL HGB CONCENTRATION 36.1 g/dL 32.0-37.0 MEAN CELL VOLUME 86.2 fl 80.0-100.0 MONOCYTE # 0.8 k/cumm 0.1-1.0 MONOCYTE % 9 % 4-6 RED BLOOD CELL 5.37 m/cumm 4.00-6.00 RED CELL DISTRIBUTION WIDTH 12.3 % 11.0- 15.6 WHITE BLOOD CELL 8.8 k/cumm 5.0-10.0 HEMOGLOBIN 16.7 gm/dL 14.0-18.0 HEMATOCRIT 46.3 % 40.0-54.0 PLATELET COUNT 222 k/cumm 150-400 PROTHROMBIN TIME WITH INR - 10/01/13 15:20 INTERNATIONAL NORMAL RATIO 0.9 0.9-1.1 PROTHROMBIN TIME 10.2 sec 9.3-12.2 URINALYSIS, ROUTINE - 10/01/13 16:41 UA LEUKOCYTE ESTERASE DIPSTICK TRACE NEGATIVE UA NITRITE DIPSTICK NEGATIVE NEGATIVE UA PROTEIN DIPSTICK NEGATIVE NEGATIVE UA GLUCOSE DIPSTICK NEGATIVE NEGATIVE UA KETONE DIPSTICK 1+ NEGATIVE UA UROBILINOGEN DIPSTICK NORMAL NORMAL UA BILIRUBIN DIPSTICK NEGATIVE NEGATIVE UA BLOOD DIPSTICK NEGATIVE NEGATIVE UA SPECIFIC GRAVITY 1.010 1.015-1.025 UR PH 9.0 5.0-7.0 UA MICROSCOPIC - 10/01/13 16:41 UA RBC 0 rbc/hpf 0 - 3 UA VOLUME FOR EXAM 12.0 mL (12mL STD) UA WBC 0-1 wbc/hpf 0 - 5 FIBRINOGEN - 10/02/13 00:10 FIBRINOGEN 209 mg/dL 200-400 FIBRIN SPLIT PRODUCT - 10/02/13 00:10 FIBRIN SPLIT PRODUCT <5 mcg/ml <5 CBC W/DIFF - 10/02/13 04:52 EOSINOPHIL # 0.2 k/cumm 0.1-0.5 EOSINOPHIL % 2 % 2-4 GRANULOCYTE # 5.2 k/cumm 2.0-9.0 GRANULOCYTE % 56 % 50-75 LYMPHOCYTE # 3.2 k/cumm 1.0-4.0 LYMPHOCYTE % 34 % 20-30 MEAN CELL HGB 31.3 pg 27.0-33.0 MEAN CELL HGB CONCENTRATION 35.0 g/dL 32.0-37.0 MEAN CELL VOLUME 89.3 fl 80.0-100.0 MONOCYTE # 0.8 k/cumm 0.1-1.0 MONOCYTE % 9 % 4-6 RED BLOOD CELL 4.86 m/cumm 4.00-6.00 RED CELL DISTRIBUTION WIDTH 12.5 % 11.0- 15.6 WHITE BLOOD CELL 9.4 k/cumm 5.0-10.0 HEMOGLOBIN 15.2 gm/dL 14.0-18.0 HEMATOCRIT 43.4 % 40.0-54.0 PLATELET COUNT 200 k/cumm 150-400 METABOLIC PANEL, COMPREHN - 10/02/13 04:52 POTASSIUM 4.0 mmol/L 3.5-5.3 EST GFR (MDRD) > 60 mL/min > 59 ANION GAP 7 mmol/L 5-15 EST CrCl (CG) > 60 mL/min > 59 GLUCOSE 85 mg/dL 70-99 CALCIUM 8.9 mg/dL 8.5-10.1 BLOOD UREA NITROGEN 10 mg/dL 7-20 CREATININE 1.0 mg/dL 0.8-1.3 SODIUM 142 mmol/L 135-148 CHLORIDE 110 mmol/L 98-110 AST/SGOT 30 Units/L 10-37 ALT/SGPT 62 Units/L < 66 CARBON DIOXIDE 25 mmol/L 21-32 TOTAL PROTEIN 7.0 gm/dL 6.4-8.2 ALBUMIN 3.8 gm/dL 3.4-5.0 BILI TOTAL 0.6 mg/dL 0.0-1.0 ALKALINE PHOSPHATASE TOTAL 65 IU/L 45- 117 LIPID PANEL - 10/02/13 04:52 CHOLESTEROL/HDL RATIO 6.9 < 5.0 LDL CHOLESTEROL 86 mg/dL < 100 VLDL CHOLESTEROL 50 mg/dL < 30 TRIGLYCERIDES 252 mg/dL < 150 CHOLESTEROL 159 mg/dL < 200 HDL CHOLESTEROL 23 mg/dL > 39 PHOSPHORUS - 10/02/13 04:52 PHOSPHORUS 3.6 mg/dL 2.5-4.9 MAGNESIUM - 10/02/13 04:52 MAGNESIUM 1.7 mg/dL 1.8-2.4 THYROID STIM HORMONE (TSH) - 10/02/13 04:52 THYROID STIM HORMONE (TSH) 0.95 uIU/mL 0.34-4.82 URINALYSIS, ROUTINE - 10/02/13 05:56 UA LEUKOCYTE ESTERASE DIPSTICK NEGATIVE NEGATIVE UA NITRITE DIPSTICK NEGATIVE NEGATIVE UA PROTEIN DIPSTICK NEGATIVE NEGATIVE UA GLUCOSE DIPSTICK NEGATIVE NEGATIVE UA KETONE DIPSTICK NEGATIVE NEGATIVE UA UROBILINOGEN DIPSTICK NORMAL NORMAL UA BILIRUBIN DIPSTICK NEGATIVE NEGATIVE UA BLOOD DIPSTICK 3+ NEGATIVE UA SPECIFIC GRAVITY 1.016 1.015-1.025 UR PH 7.0 5.0-7.0 UA MICROSCOPIC - 10/02/13 05:56 UA EPITHELIAL CELLS 1+ epi/hpf 0 - 1+ UA RBC 20-50 rbc/hpf 0 - 3 UA VOLUME FOR EXAM 12.0 mL (12mL STD) UA WBC 0 wbc/hpf 0 - 5 CBC W/DIFF - 10/02/13 19:26 EOSINOPHIL # 0.2 k/cumm 0.1-0.5 EOSINOPHIL % 2 % 2-4 GRANULOCYTE # 6.4 k/cumm 2.0-9.0 GRANULOCYTE % 65 % 50-75 LYMPHOCYTE # 2.8 k/cumm 1.0-4.0 LYMPHOCYTE % 28 % 20-30 MEAN CELL HGB 31.3 pg 27.0-33.0 MEAN CELL HGB CONCENTRATION 35.2 g/dL 32.0-37.0 MEAN CELL VOLUME 89.1 fl 80.0-100.0 MONOCYTE # 0.5 k/cumm 0.1-1.0 MONOCYTE % 5 % 4-6 RED BLOOD CELL 4.69 m/cumm 4.00-6.00 RED CELL DISTRIBUTION WIDTH 12.3 % 11.0- 15.6 WHITE BLOOD CELL 9.9 k/cumm 5.0-10.0 HEMOGLOBIN 14.7 gm/dL 14.0-18.0 HEMATOCRIT 41.8 % 40.0-54.0 PLATELET COUNT 188 k/cumm 150-400 METABOLIC PANEL, BASIC - 10/02/13 19:26 POTASSIUM 3.7 mmol/L 3.5-5.3 EST GFR (MDRD) > 60 mL/min > 59 ANION GAP 8 mmol/L 5-15 EST CrCl (CG) > 60 mL/min > 59 GLUCOSE 137 mg/dL 70-99 CALCIUM 8.5 mg/dL 8.5-10.1 BLOOD UREA NITROGEN 10 mg/dL 7-20 CREATININE 1.2 mg/dL 0.8-1.3 SODIUM 139 mmol/L 135-148 CHLORIDE 106 mmol/L 98-110 CARBON DIOXIDE 25 mmol/L 21-32 FIBRINOGEN - 10/02/13 19:26 FIBRINOGEN 248 mg/dL 200-400 FIBRIN SPLIT PRODUCT - 10/02/13 19:26 FIBRIN SPLIT PRODUCT <5 mcg/ml <5 GLUCOSE (POC) - 10/02/13 21:49 GLUCOSE (POC) 137 mg/dL 70-99 GLUCOSE (POC) - 10/03/13 04:57 GLUCOSE (POC) 88 mg/dL 70-99 CBC W/DIFF - 10/03/13 05:58 EOSINOPHIL # 0.2 k/cumm 0.1-0.5 EOSINOPHIL % 2 % 2-4 GRANULOCYTE # 5.6 k/cumm 2.0-9.0 GRANULOCYTE % 62 % 50-75 LYMPHOCYTE # 2.6 k/cumm 1.0-4.0 LYMPHOCYTE % 29 % 20-30 MEAN CELL HGB 30.8 pg 27.0-33.0 MEAN CELL HGB CONCENTRATION 34.8 g/dL 32.0-37.0 MEAN CELL VOLUME 88.4 fl 80.0-100.0 MONOCYTE # 0.7 k/cumm 0.1-1.0 MONOCYTE % 7 % 4-6 RED BLOOD CELL 4.81 m/cumm 4.00-6.00 RED CELL DISTRIBUTION WIDTH 12.2 % 11.0- 15.6 WHITE BLOOD CELL 9.2 k/cumm 5.0-10.0 HEMOGLOBIN 14.8 gm/dL 14.0-18.0 HEMATOCRIT 42.5 % 40.0-54.0 PLATELET COUNT 166 k/cumm 150-400 RENAL FUNCTION PANEL - 10/03/13 05:58 POTASSIUM 4.2 mmol/L 3.5-5.3 EST GFR (MDRD) > 60 mL/min > 59 ANION GAP 8 mmol/L 5-15 EST CrCl (CG) > 60 mL/min > 59 GLUCOSE 84 mg/dL 70-99 CALCIUM 8.8 mg/dL 8.5-10.1 BLOOD UREA NITROGEN 10 mg/dL 7-20 CREATININE 1.0 mg/dL 0.8-1.3 SODIUM 142 mmol/L 135-148 CHLORIDE 112 mmol/L 98-110 CARBON DIOXIDE 22 mmol/L 21-32 ALBUMIN 3.7 gm/dL 3.4-5.0 PHOSPHORUS 3.8 mg/dL 2.5-4.9 MAGNESIUM - 10/03/13 05:58 MAGNESIUM 2.0 mg/dL 1.8-2.4 AG PROSTATE SPECIFIC - 10/03/13 05:58 AG PROSTATE SPECIFIC 2.42 ng/mL 0.0-2.9 GLUCOSE (POC) - 10/03/13 09:38 GLUCOSE (POC) 188 mg/dL 70-99 THROMBOPHILIA PROFILE, STROKE - 10/03/13 12:26 DILUTE THOMAS VIPER VENOM TIME NEGATIVE NEGATIVE SILICA CLOTTING TIME NEGATIVE NEGATIVE BETA-2 GLYCOPROTEIN I AB IGA < 9 0-25 BETA-2 GLYCOPROTEIN I AB IGG < 9 0-20 BETA-2 GLYCOPROTEIN I AB IGM < 9 0-32 AB CARDIOLIPIN IGA <9 APL U/mL 0-11 AB CARDIOLIPIN IGG <9 GPL U/mL 0-14 AB CARDIOLIPIN IGM 12 MPL U/mL 0-12 FIBRINOGEN 267 mg/dL 200-400 FACTOR 8 ACTIVITY 192.1 % act 63-177 [place] FACTOR ANTIGEN 184 % 44- 218 PLASMINOGEN ACTIVATOR INHIBIT 8.0 IU/mL 0 -27 LIPOPROTEIN (a) 36 nmol/L <75 HOMOCYSTEINE, PLASMA 13.1 mcmol/L 3.7- 13.9 GLUCOSE (POC) - 10/03/13 13:56 GLUCOSE (POC) 135 mg/dL 70-99 GLUCOSE (POC) - 10/03/13 20:08 GLUCOSE (POC) 164 mg/dL 70-99 CBC W/DIFF - 10/04/13 05:38 EOSINOPHIL # 0.2 k/cumm 0.1-0.5 EOSINOPHIL % 2 % 2-4 GRANULOCYTE # 4.8 k/cumm 2.0-9.0 GRANULOCYTE % 56 % 50-75 LYMPHOCYTE # 2.9 k/cumm 1.0-4.0 LYMPHOCYTE % 34 % 20-30 MEAN CELL HGB 31.0 pg 27.0-33.0 MEAN CELL HGB CONCENTRATION 35.3 g/dL 32.0-37.0 MEAN CELL VOLUME 87.7 fl 80.0-100.0 MONOCYTE # 0.6 k/cumm 0.1-1.0 MONOCYTE % 7 % 4-6 RED BLOOD CELL 4.97 m/cumm 4.00-6.00 RED CELL DISTRIBUTION WIDTH 12.3 % 11.0- 15.6 WHITE BLOOD CELL 8.5 k/cumm 5.0-10.0 HEMOGLOBIN 15.4 gm/dL 14.0-18.0 HEMATOCRIT 43.6 % 40.0-54.0 PLATELET COUNT 183 k/cumm 150-400 RENAL FUNCTION PANEL - 10/04/13 05:38 POTASSIUM 4.1 mmol/L 3.5-5.3 EST GFR (MDRD) > 60 mL/min > 59 ANION GAP 10 mmol/L 5-15 EST CrCl (CG) > 60 mL/min > 59 GLUCOSE 85 mg/dL 70-99 CALCIUM 8.5 mg/dL 8.5-10.1 BLOOD UREA NITROGEN 9 mg/dL 7-20 CREATININE 1.1 mg/dL 0.8-1.3 SODIUM 141 mmol/L 135-148 CHLORIDE 109 mmol/L 98-110 CARBON DIOXIDE 22 mmol/L 21-32 ALBUMIN 3.9 gm/dL 3.4-5.0 PHOSPHORUS 2.9 mg/dL 2.5-4.9 MAGNESIUM - 10/04/13 05:38 MAGNESIUM 2.0 mg/dL 1.8-2.4 GLUCOSE (POC) - 10/04/13 05:54 GLUCOSE (POC) 78 mg/dL 70-99 GLUCOSE (POC) - 10/04/13 09:58 GLUCOSE (POC) 109 mg/dL 70-99 GLUCOSE (POC) - 10/04/13 13:54 GLUCOSE (POC) 128 mg/dL 70-99 ANTITHROMBIN ACTIVITY - 10/04/13 15:56 ANTITHROMBIN ACTIVITY 111 % 78-128 FACTOR II, DNA - 10/04/13 15:56 FACTOR II, DNA NEGATIVE NEGATIVE PROTEIN C ACTIVITY - 10/04/13 15:56 PROTEIN C ACTIVITY 106 % act 82-154 FACTOR V DNA - LEIDEN VARIANT - 10/04/13 15:56 FACTOR V MUTATION DNA NEGATIVE NEGATIVE PROTEIN S ANTIGEN FREE - 10/04/13 15:56 PROTEIN S ANTIGEN FREE 107 % 73-137 CBC W/DIFF - 10/15/13 12:25 BASOPHIL # 0.1 k/cumm 0.0-0.2 BASOPHIL % 1 % 0-1 COMMENT REVIEWED EOSINOPHIL # 0.2 k/cumm 0.1-0.5 EOSINOPHIL % 2 % 2-4 GRANULOCYTE # 6.5 k/cumm 2.0-9.0 GRANULOCYTE % 60 % 50-75 LYMPHOCYTE # 3.1 k/cumm 1.0-4.0 LYMPHOCYTE % 28 % 20-30 MEAN CELL HGB 31.5 pg 27.0-33.0 MEAN CELL HGB CONCENTRATION 35.1 g/dL 32.0-37.0 MEAN CELL VOLUME 89.8 fl 80.0-100.0 MONOCYTE # 1.0 k/cumm 0.1-1.0 MONOCYTE % 9 % 4-6 RED BLOOD CELL 5.11 m/cumm 4.00-6.00 RED CELL DISTRIBUTION WIDTH 13.0 % 11.0- 15.6 WHITE BLOOD CELL 10.8 k/cumm 5.0-10.0 HEMOGLOBIN 16.1 gm/dL 14.0-18.0 HEMATOCRIT 45.9 % 40.0-54.0 PLATELET COUNT 226 k/cumm 150-400 PROTHROMBIN TIME WITH INR - 10/15/13 12:25 INTERNATIONAL NORMAL RATIO 0.9 0.9-1.1 PROTHROMBIN TIME 10.1 sec 9.3-12.2 CHEM/HEM PROFILE-BEDSIDE - 10/15/13 12:33 POTASSIUM 4.3 mmol/L 3.5-5.3 METHOD Bedside ANION GAP 18 mmol/L 10-20 METHOD Bedside GLUCOSE 84 mg/dL 70-99 BLOOD UREA NITROGEN 14 mg/dL 7-20 CREATININE 1.1 mg/dL 0.8-1.3 HEMOGLOBIN 15.3 gm/dL 14.0-18.0 HEMATOCRIT 45.0 % 40.0-54.0 SODIUM 140 mmol/L 135-148 CHLORIDE 106 mmol/L 98-110 CARBON DIOXIDE 21 mmol/L 21-32 CALCIUM IONIZED 4.5 mg/dL 4.5-5.3 Encounters ACCT No. Visit Date/Time Discharge Status Pt. Type Provider Facility Loc./Unit Complaint [id number] 06/28/2013 08:24:00 06/28/2013 23 :59:59 CLS Outpatient [id number] 06/14/2013 13:04:00 06/14/2013 23 :59:59 CLS Outpatient [id number] 06/04/2013 08:36:00 06/04/2013 23 :59:59 CLS Outpatient [id number] 05/23/2013 12:53:00 05/23/2013 23 :59:59 CLS Outpatient [id number] 04/25/2013 08:15:00 04/25/2013 23 :59:59 CLS Outpatient
--- OUTSIDE RECORDS SUMMARY | 2016-08-21 19:17 | XMS REPORT | Continuity of Care Document ---
Author Author [facility] Organization [facility] Address Unknown Phone Unavailable Care Team Providers Care Grinding Machine Operator Name Role Phone SANDRA JASSO MD Primary Care Physician [phone] Insurance Providers Payer Name Policy Number Subscriber Name Relationship [facility] [id number] Luis Morgan 20 Self Advance Directives Directive Response Recorded Date/Time Advanced Directives Type None 02/17/14 11:25am Problems Medical Problems Problem Onset Date Status [...] without status migrainosus, not intractable Unknown Active Surgical Problems Problem Onset Date [...] History Problem Response Recorded Date/Time Smoking Status Former smoker 02/17/2014 10:35am Hx Alcohol Use No 02/17/2014 10:35am Has the pt used tobacco in the last 12 months No 07/06/2013 8:06pm Query Response Start Date Stop Date Smoking Status Former smoker Hospital Discharge Instructions No hospital discharge instructions. Plan of Care No plan of care. Functional Status Query Response Date Recorded Physical Hygiene Self February 17, 2014 10:35am Disabilities Paralysis February 17, 2014 10:35am Devices Used Wheelchair February 17, 2014 10:35am Dressing Self February 17, 2014 10:35am Ambulation Self February 17, 2014 10:35am Diet Self February 17, 2014 10:35am Mental Status Alert Oriented February 17, 2014 10:35am Disabilities Paralysis February 17, 2014 10:35am Devices Used Wheelchair February 17, 2014 10:35am Physical Hygiene Self February 17, 2014 10:35am Dressing Self February 17, 2014 10:35am Ambulation Self February 17, 2014 10:35am Diet Self February 17, 2014 10:35am Allergies, Adverse Reactions, Alerts Allergen Type Severity [...] Vital Signs Vital Response Date/Time Temperature (Fahrenheit) 97.8 deg F (96.8 - 99.1) Temperature (Calculated Celsius) 36.19386 degrees C (36.0 - 37.3) Pulse Rate (adult) 59 bpm (60 - 100) Respiratory Rate 20 breaths/min (10 - 20) O2 Sat by Pulse Oximetry 94 % (90 - 100) Blood Pressure 121/63 mm Hg Height 5 ft 11 in Weight 235 lb Body Mass Index 32.0 kg/m^2 Results [...] Has specimen been collected/obtained? Y Urine Specific [place] July 07, 2013 2:10am 1.010 L - [...] 14, 2013 12:55pm LAB TEST FORM REQUEST [id number] - HDL Cholesterol Direct March 01, 2013 [...] July 07, 2013 4:49am < 2 0-7 NZ-Ytk-M-Type Natriuretic Peptide May 06, 2011 8:22am 68 PG/ML N 0- 175 Rule in cut points: <50 years old=450; 50-75 years old=900; >75 years old=1800; When utilizing ProBNP rule-in cut points, adjustment for impaired renal function is typically not required. Name: LUIS MORGAN Unit #: [id number] : 1960 Sex: M Loc / Svc: ED DOS: 01/13/14 Signed Report #: [id number] DIAGNOSTIC IMAGING REPORT TYPE OF EXAM: CT [...] ADDON completed 01/28/14 TX/PRO/DX INJ SAME DRUG PATENT LAWYER completed 01/28/14 Encounters Encounter Location Date/Time Departed Emergency Room [facility] 02/17/14 10:25am Departed Emergency Room [facility] 01/28/14 12:57pm Departed Emergency Room [facility] 01/13/14 2:10pm Departed Emergency Room [facility] 12/19/13 7:00pm Registered Clinic [facility] 12/14/13 9:17am Departed Emergency Room [facility] 11/24/13 3:36am Recent Diagnosis
--- OUTSIDE RECORDS SUMMARY | 2016-08-21 19:18 | XMS REPORT | Referral Summary ---
Author Author [facility] Organization [facility] Address Unknown Phone Unavailable Care Team Providers Care Floor Technician Name Role Phone Monique Holguin Primary Care Physician [phone] Encounter Date(s): 01/08/16 - 01/08/16 [facility] [address] [place], [place] [address] Discharge Diagnosis: Sleep disorder Discharge Diagnosis: Palpitations Discharge Diagnosis: Chest pain Discharge Diagnosis: Orthostasis Discharge Diagnosis: H/O migraine Discharge Disposition: 01-Home or Self Care Attending Physician: Javon Sanabria MD Admitting Physician: Javon Sanabria MD Referring Physician: Angel Holguin MD Vital Signs Most recent to 1 oldest [Reference Range]: Peripheral Pulse 56 bpm Rate [60-100 bpm] *LOW* (01/08/16 9:51 AM) Blood Pressure 110/64 mmHg [90-140/60-90 mmHg] (01/08/16 9:51 AM) Problem List Condition Effective Dates Status Health [...] DAILY, # 30 tabs, 5 Refill(s), eRx: [facility] #[id number], TAKE ONE TABLET BY MOUTH DAILY Start Date: 11/11/15 Status: Ordered Flomax 0.4 mg oral capsule 0.4 mg 1 caps, Oral, Daily, # 30 caps, 6 Refill(s), Pharmacy: [facility] # [id number], 1 caps Oral Daily Start Date: 10/09/15 Status: Ordered Metoprolol Tartrate 25 mg oral tablet 25 mg 1 tabs, Oral, BID, # 60 tabs, 6 Refill(s), Pharmacy: [facility] # [id number], 1 tabs Oral BID,x30 days Start Date: 12/18/15 Stop Date: 07/15/16 Status: Ordered ondansetron 4 mg oral tablet 4 mg 1 tabs, Oral, q8hr, as needed for nausea/vomiting, # 20 tabs, 0 Refill(s), Pharmacy: [facility] #[id number], 1 tabs Oral q8hr,PRN:as needed for nausea/ vomiting Start Date: 10/09/15 Status: Ordered topiramate 100 mg oral tablet 150 mg 1.5 tabs, Oral, BID, # 90 tabs, 6 Refill(s), Pharmacy: [facility] # [id number], 1.5 tabs Oral BID Start Date: 10/09/15 [...] years: 11 1DC; 2011 Assessment and Plan Referrals to Other Providers Referred by: Javon Sanabria MD
--- OUTSIDE RECORDS SUMMARY | 2016-08-21 19:18 | XMS REPORT | Continuity of Care Document ---
Author Author [facility] Organization [facility] Address Unknown Phone Unavailable Support Name Relationship Address Phone SANDRA JASSO MD Caregiver [address] [phone] AMIE BASS MD Caregiver 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 Surgical Problems Problem Onset Date Recorded Date/Time Status Acute calculous cholecystitis ~07/06/2013 07/08/2013 4:54pm Active Medications Medication Dose Route Sig Days/Qty Instructions Order Date Discontinued Date Status [Antidepressant] 08/08/09 02/28/13 Discontinued [B/P Med, Slows Hr] 08/08/09 02/28/13 Discontinued Nitroglycerin 1 Tab SL NEEDED 08/08/09 02/28/13 Discontinued [Reflux Med] 08/08/09 02/28/13 Discontinued Metoprolol Succinate 1 Tab PO DAILY 02/28/13 Active Citalopram Hydrobromide 1 Tab PO DAILY 02/28/13 Active Topiramate 1 PO TWICE A DAY 12/19/13 Active Rizatriptan Benzoate 1 Tab PO NEEDED PRN severe migraines Active Pravastatin Sodium 1 Tab PO DAILY Take 1 tablet, by mouth, daily at bedtime. 12/19/13 Active Allopurinol 1 Tab PO DAILY 12/19/13 Active Lorazepam 1 Tab PO DAILY PRN ANXIETY 12/19/13 Active Isomethept/Dichlphn/Acetaminop 1 Cap PO NEEDED 06/16/14 Active Clopidogrel Bisulfate 1 Tab PO DAILY 07/15/14 Active Tamsulosin HCl 0.4 Mg PO BEDTIME 07/15/14 Active Prednisone 4 Tab PO TWICE DAILY WITH MEALS tapered dosing started 3 days ago. 07/15/14 Active Metaxalone 800 Mg PO THREE TIMES A DAY 07/15/14 Active Diphenhydramine HCl 1 Cap PO Q4H PRN allergies 07/15/14 Active Social History Social History Problem Response Recorded Date/Time Hx Substance Use No 07/15/2014 1:39pm Hx Alcohol Use No 07/15/2014 1:39pm Has the pt used tobacco in the last 12 months No 07/06/2013 8:06pm Tobacco Usage none 07/06/2013 1:32pm Query Response Start Date Stop Date Smoking Status Light Smoker Hospital Discharge Instructions No hospital discharge instructions. Plan of Care No plan of care. Functional Status Query Response Date Recorded Physical Hygiene Self July 15, 2014 1:39pm Disabilities Visual July 15, 2014 1:39pm Devices Used Glasses July 15, 2014 1:39pm Dressing Self July 15, 2014 1:39pm Ambulation Self July 15, 2014 1:39pm Diet Self July 15, 2014 1:39pm Mental Status Alert Oriented July 15, 2014 3:11pm Disabilities Visual July 15, 2014 1:39pm Devices Used Glasses July 15, 2014 1:39pm Physical Hygiene Self July 15, 2014 1:39pm Dressing Self July 15, 2014 1:39pm Ambulation Self July 15, 2014 1:39pm Diet Self July 15, 2014 1:39pm Allergies, Adverse Reactions, Alerts Allergen Type Severity Reaction Status Last Updated No Known Allergies Active 07/15/14 Immunizations Name Given Type Hx Influenza Vaccination No Historical Hx Pneumococcal Vaccination Y 2011 Historical Hx Tetanus, Diptheria, Pertussis < 5 YRS Historical Hx Influenza Vaccination No Historical Hx Tetanus, Diptheria, Pertussis < 5 YRS Historical Vital Signs Acute Vital Signs Vital Response Date/Time Temperature (Fahrenheit) 97.4 deg F (96.8 - 99.1) Temperature (Calculated Celsius) 36.41527 degrees C (36.0 - 37.3) Pulse Rate (adult) 71 bpm (60 - 100) Respiratory Rate 12 breaths/min (10 - 20) O2 Sat by Pulse Oximetry 95 % (90 - 100) Blood Pressure 113/62 mm Hg Height 5 ft 11 in Weight 230 lb Body Mass Index 32.0 kg/m^2 Results [...] 14, 2013 12:55pm LAB TEST FORM REQUEST [id number] - Lipase July 07, 2013 4:49am 91 [...] 16, 2014 12:29pm 5.9 % N 0-9.0 [id number]-Ftj-T-Type Natriuretic Peptide June 16, 2014 12:29pm 52 [...] Has specimen been collected/obtained? Y Urine Specific [place] July 07, 2013 2:10am 1.010 L - [...] N 4.5-11.0 Name: LUIS MORGAN Unit #: [id number] : 1960 Sex: M Loc / Svc: ED DOS: 07/15/14 Signed Report #: [id number] DIAGNOSTIC IMAGING REPORT TYPE OF EXAM: CT HEAD W/O CONTRAST Dictated By: BRAEDEN MALDONADO MD Indication: ITS.REASON: right sidedweakness, persisting, history of hemiplegic migraine CT HEAD W/O CONTRAST: Comparison: June 16, 2014 Technique: Axial CT images through the [...] base, midface, and calvarium demonstrate no abnormality. The paranasal sinuses are well aerated and free of significant disease. The tympanic and mastoid cavities appear normal. IMPRESSION: No acute intracranial abnormality or hemorrhage. Stable head CT. . Procedures Procedure Status Date Provider(s) ROUTINE VENIPUNCTURE completed 06/16/14 CT HEAD/BRAIN W/O DYE completed 06/16/14 COMPREHEN METABOLIC PANEL completed 06/16/14 ASSAY OF NATRIURETIC PEPTIDE completed 06/16/14 ASSAY OF TROPONIN QUANT completed 06/16/14 COMPLETE CBC W/AUTO DIFF WBC completed 06/16/14 HYDRATE IV INFUSION ADD-ON completed 06/16/14 THER/PROPH/DIAG INJ IV PUSH completed 06/16/14 TX/PRO/DX INJ NEW DRUG ADDON completed 06/16/14 TX/PRO/DX INJ NEW DRUG ADDON completed 06/16/14 TX/PRO/DX INJ NEW DRUG ADDON completed 06/16/14 TX/PRO/DX INJ NEW DRUG ADDON completed 06/16/14 EMERGENCY DEPT VISIT completed 06/16/14"INJECTION, PROCHLORPERAZINE, UP TO 10 MG" completed 06/16/14"INJECTION, HYDROMORPHONE, UP TO 4 MG" completed 06/16/14"INJECTION, DIPHENHYDRAMINE HCL, UP TO 50 MG" completed 06/16/14"INJECTION, KETOROLAC TROMETHAMINE, PER 15 MG" completed 06/16/14"INJECTION, ONDANSETRON HYDROCHLORIDE, PER 1 MG" completed 06/16/14"INFUSION, NORMAL SALINE SOLUTION , 1000 CC" completed 06/16/14 Encounters Encounter Location Date/Time Departed Emergency Room [facility] 07/15/14 12:59pm Departed Emergency Room [facility] 06/16/14 12:07pm Recent Diagnosis
--- OUTSIDE RECORDS SUMMARY | 2016-08-21 19:18 | XMS REPORT | Referral Summary ---
Author Author [facility] Organization [facility] Address Unknown Phone Unavailable Care Team Providers Care Baked And Graphite Inspector Name Role Phone Monique Holguin Primary Care Physician [phone] Encounter VC Date(s): 02/18/16 - 02/18/16 [facility] [address] [place] [address] Dr Naylor [place] [id number]- Discharge Diagnosis: Orthostasis Discharge Diagnosis: Hypertension Discharge Diagnosis: History of palpitations Discharge Disposition: -Home or Self Care Attending Physician: Javon Sanabria MD Admitting Physician: Javon Sanabria MD Referring Physician: Angel Holguin MD Vital Signs Most recent to 1 oldest [Reference Range]: Peripheral Pulse 76 bpm Rate [60-100 bpm] (02/18/16 2:59 PM) Blood Pressure 108/64 mmHg [90-140/60-90 mmHg] (02/18/16 2:59 PM) Problem List Condition Effective Dates Status [...] DAILY, # 30 tabs, 5 Refill(s), eRx: [facility] #[id number], TAKE ONE TABLET BY MOUTH DAILY Start Date: 11/11/15 Status: Ordered Flomax 0.4 mg oral capsule 0.4 mg 1 caps, Oral, Daily, # 30 caps, 6 Refill(s), Pharmacy: [facility] # [id number], 1 caps Oral Daily Start Date: 10/09/15 Status: Ordered Metoprolol Tartrate 25 mg oral tablet 25 mg 1 tabs, Oral, BID, # 60 tabs, 6 Refill(s), Pharmacy: [facility] # [id number], 1 tabs Oral BID,x30 days Start Date: 12/18/15 Stop Date: 07/15/16 Status: Ordered ondansetron 4 mg oral tablet 4 mg 1 tabs, Oral, q8hr, as needed for nausea/vomiting, # 20 tabs, 0 Refill(s), Pharmacy: [facility] #[id number], 1 tabs Oral q8hr,PRN:as needed for nausea/ vomiting Start Date: 10/09/15 Status: Ordered oxyCODONE-ibuprofen tabs, Oral, QID, 0 Refill(s) Start Date: 02/18/16 Status: Ordered topiramate 100 mg oral tablet 150 mg 1.5 tabs, Oral, BID, # 90 tabs, 6 Refill(s), Pharmacy: [facility] # [id number], 1.5 tabs Oral BID Start Date: 10/09/15 [...] Extracted from: Title: Office Visit Note Author: Javon Sanabria MD Date: 02/18/16 Assessment/Plan 1.History of palpitations 2.Orthostasis 3.Hypertension Discussion: Overall, this gentleman seems to haveundergone a rather major improvement. Based upon his clinical stability, I didn't do any additional testing. It's probably not necessary for me to see him routinely although I advised him that we can be a resource any time.
--- OUTSIDE RECORDS SUMMARY | 2016-08-21 19:19 | XMS REPORT | Referral Summary ---
Author Author [facility] Organization [facility] Address Unknown Phone Unavailable Care Team Providers Care Metal Sprayer Production Name Role Phone Monique Holguin Primary Care Physician [phone] Encounter VC Date(s): 05/19/16 - 05/19/16 [facility] [address] [place] [address] Dr Naylor [place] [address]- Discharge Diagnosis: Prostate cancer screening Discharge Diagnosis: BPH (benign prostatic hyperplasia) Discharge Diagnosis: ED (erectile dysfunction) Discharge Disposition: -Home or Self Care Attending Physician: Curtis Hannah MD Admitting Physician: Curtis Hannah MD Referring Physician: Angel Holguin MD Vital Signs Most recent to 1 oldest [Reference Range]: Blood Pressure 124/74 mmHg [90-140/60-90 mmHg] (05/19/16 2:34 PM) Problem List Condition Effective Dates Status [...] DAILY, # 30 tabs, 5 Refill(s), eRx: [facility] #[id number], TAKE ONE TABLET BY MOUTH DAILY Start Date: 11/11/15 Status: Ordered Compazine 0 Refill(s) Start Date: 05/19/16 Status: Ordered Flomax 0.4 mg oral capsule 0.4 mg 1 caps, Oral, Daily, # 30 caps, 6 Refill(s), Pharmacy: [facility] # [id number], 1 caps Oral Daily Start Date: 10/09/15 Status: Ordered meloxicam 15 mg oral tablet 15 mg 1 tabs, Oral, Daily, # 10 tabs, 0 Refill(s), Pharmacy: [facility] # [id number], 1 tabs Oral Daily Start Date: 05/11/16 Status: Ordered Metoprolol Tartrate 25 mg oral tablet 25 mg 1 tabs, Oral, BID, # 60 tabs, 6 Refill(s), Pharmacy: [facility] # [id number], 1 tabs Oral BID,x30 days Start Date: 12/18/15 Stop Date: 07/15/16 Status: Ordered ondansetron 4 mg oral tablet 4 mg 1 tabs, Oral, q8hr, as needed for nausea/vomiting, # 20 tabs, 0 Refill(s), Pharmacy: [facility] #[id number], 1 tabs Oral q8hr,PRN:as needed for nausea/ vomiting Start Date: 10/09/15 Status: Ordered topiramate 100 mg oral tablet 150 mg 1.5 tabs, Oral, BID, # 90 tabs, 6 Refill(s), Pharmacy: [facility] # [id number], 1.5 tabs Oral BID Start Date: 10/09/15 [...] Visit Note Author: Curtis Hannah MD Date: 05/19/16 Assessment/Plan 1.BPH (benign prostatic hyperplasia) Cont Flomax twice daily. Discussed the pathophysiology of BPH. Given minimal relief from medication - will plan for cystoscopy and TRUS measurement of the prostate. 2.ED (erectile dysfunction) Discussed the pathophysiology of ED. Discussed the treatment options. Provided patient with Viagra. Explained the potential side effects of the medication. 3.Prostate cancer screening MARTINEZ normal. Will obtain PSA in 1 week. Last PSA was 1.9 in 10/2015.
--- OUTSIDE RECORDS SUMMARY | 2016-08-21 19:19 | XMS REPORT | Continuity of Care Document ---
Author Author [facility] Organization [facility] Address Unknown Phone Unavailable Support Name Relationship Address Phone JACQUELINE LANDEROS MD Caregiver [address] [place] [address] Unavailable ELISEO LEIGH MD Caregiver [address] [place] [address] Unavailable AYAKA MORGAN Next Of Kin [address] [place] [address] Insurance Providers Guarantor Luis Morgan Address [address] [place] [address] Email DENIED05-17-16 Payer Formerly [facility] Policy Number [id number] Subscriber's Name Luis Morgan Relationship 18 Self Group Number [id number] Advance Directives Directive Response Recorded Date/Time Advanced Directives Type None 05/17/16 7:00pm Chief Complaint and Reason for Visit Chief Complaint Headache Reason for Visit Hemiplegic migraine Problems Active Problems Medical Problem Onset Date Status Acute urinary retention Unknown Acute Adverse drug effect Unknown Acute Anxiety Unknown Acute Depression Unknown Acute Gout attack Unknown Acute Gout attack Unknown Acute Hemiplegic migraine Unknown Acute Hemiplegic migraine Unknown Acute Hemiplegic migraine Unknown Acute Hemiplegic migraine Unknown Acute History of stroke 02/28/2013 Acute Hypercholesteremia Unknown Acute Hypertension Unknown Acute Migraine Unknown Acute Migraine Unknown Acute Migraine Unknown Acute Migraine Unknown Acute Migraine with aura and without status migrainosus, not intractable Unknown Acute Migraine with aura and without status migrainosus, not intractable Unknown Acute Right hemiparesis Unknown Acute Sinusitis, acute frontal Unknown Acute Surgical Problem Onset Date Status Acute calculous cholecystitis ~07/06/2013 Acute Past Problems Medical Problem Onset Date Hemiplegic migraine Unknown Hemiplegic migraine Unknown Palpitations Unknown Stress response Unknown Medications Current Home Medications Medication Dose Units Route Directions Days Qty Instructions Start Date Aspirin 81 Mg Tab.chew 81 Mg Oral Daily 12/09/15 Citalopram Hydrobromide (Celexa) 40 Mg Tablet 40 Mg Oral Daily Metoprolol Tartrate 25 Mg Tablet 25 Mg Oral Twice A Day 03/17/15 Ondansetron Hcl 4 Mg Tablet 4 Mg Oral Three Times A Day as needed for Nausea 03/01/16 Tamsulosin Hcl 0.4 Mg Cap.er.24h 0.4 Mg Oral Daily 07/15/14 Topiramate 100 Mg Tablet 100 Mg Oral Twice A Day 03/17/15 Past Home Medications Medication Directions Ordered Status Antidepressant , 08/08/09 Discontinued B/P Med, Slows Hr , 08/08/09 Discontinued Nitroglycerin 0.4 Mg Tab.subl, 1 Tab Sublingual As Needed 08/08/09 Discontinued Oxycodone Hcl/Acetaminophen (Oxycodone-Acetaminophen 5-325) 5-325 Tablet, 1 Tab Oral Every 4 Hours as needed for Pain 03/01/16 Discontinued Prednisone Unknown Strength Tablet, 4 Tab Oral Twice Daily With Meals Discontinued Prochlorperazine Maleate (Compazine) 10 Mg Tablet, 10 Mg Oral Four Times Daily for [place]/N/V 03/01/16 Discontinued Reflux Med , 08/08/09 Discontinued Rizatriptan Benzoate (Rizatriptan) 10 Mg Tab.rapdis, 1 Tab Oral As Needed as needed for Severe Migraines 12/19/13 Discontinued Social History Social History Problem Response Recorded Date/Time Onset Date Status Hx Substance Use No 05/17/2016 7:13pm Not Applicable Not Applicable Hx Alcohol Use N HX OF ALCOHOL ABUSE 05/17/2016 7:13pm Not Applicable Not Applicable Has the pt used tobacco in the last 12 months No 04/18/2015 7:40am Not Applicable Not Applicable Tobacco Usage none 07/06/2013 1:32pm Not Applicable Not Applicable Query Response Start Date Stop Date Smoking Status Never smoker Hospital Discharge Instructions No hospital discharge instructions. Plan of Care Discharge Date 05/17/16 10:38pm Disposition 01 DISCHARGED HOME, SELF-CARE Condition at Discharge Improved Instructions/Education Provided Migraine Headache (ED) Prescriptions See Medication Section Referrals ELISEO LEIGH MD Address: [address] [place] [address] [phone] Additional Instructions/Education 1. Go home and rest 2. Update your home medication list please 3. Follow up with your neurologist. Care Plan and Goals Physician Care Plan Problem: Hemiplegic migraine Goal: Follow up with primary care provider Instructions: Take medications and follow care plan as discussed/written Functional Status No functional status results. Allergies, Adverse Reactions, Alerts No known allergies. Immunizations Query Response on File Recorded Date/Time Hx Influenza Vaccination Y 01/06/15 04/17/15 11:21am Hx Pneumococcal Vaccination Y 201104/17/15 11:21am Hx Tetanus, Diptheria, Pertussis < 5 YRS 01/06/15 7:40pm Hx Influenza Vaccination Y 01/06/15 04/17/15 11:21am Hx Tetanus, Diptheria, Pertussis < 5 YRS 01/06/15 7:40pm Influenza Vaccine Hx NO 05/17/16 7:13pm Vital Signs Acute Vital Signs Vital Response Date/Time Temperature (Fahrenheit) 98.3 deg F (96.8 - 99.1) 05/17/2016 10:38pm Temperature (Calculated Celsius) 36.87826 degrees C (36.0 - 37.3) 05/17/2016 10:38pm Pulse Rate (adult) 56 bpm (60 - 100) 05/17/2016 10:38pm Respiratory Rate 16 breaths/min (10 - 20) 05/17/2016 10:38pm O2 Sat by Pulse Oximetry 97 % (90 - 100) 05/17/2016 10:38pm Blood Pressure 109/68 mm Hg 05/17/2016 10:38pm Height (Feet) 5 feet 05/17/2016 7:00pm Height (Inches) 11.00 inches 05/17/2016 7:00pm Weight (Kilograms) 102.500 kg 05/17/2016 7:00pm Body Mass Index (BMI) 31.0 05/17/2016 7:00pm Results No known relevant diagnostic tests, laboratory data and/or discharge summary. Procedures Procedure Status Date Provider(s) Ther/proph/diag inj sc/im Completed 03/01/16 Ther/proph/diag inj sc/im Completed 03/01/16 Emergency dept visit Completed 03/01/16"INJECTION, PROCHLORPERAZINE, UP TO 10 MG" Completed 03/01/16"INJECTION, HYDROMORPHONE, UP TO 4 MG" Completed 03/01/16"INJECTION, KETOROLAC TROMETHAMINE, PER 15 MG" Completed 03/01/16 Hydrate iv infusion add-on Completed 03/22/16 Ther/proph/diag inj sc/im Completed 03/22/16 Ther/proph/diag inj iv push Completed 03/22/16 Tx/pro/dx inj new drug addon Completed 03/22/16 Tx/pro/dx inj new drug addon Completed 03/22/16 Tx/pro/dx inj new drug addon Completed 03/22/16 Tx/pro/dx inj new drug addon Completed 03/22/16 Emergency dept visit Completed 03/22/16 [id number]"INJECTION, DIHYDROERGOTAMINE MESYLATE, PER 1 MG" Completed 03/22/16 [id number]"INJECTION, DIPHENHYDRAMINE HCL, UP TO 50 MG" Completed 03/22/16 [id number]"INJECTION, KETOROLAC TROMETHAMINE, PER 15 MG" Completed 03/22/16 [id number]"INJECTION, PROMETHAZINE HCL, UP TO 50 MG" Completed 03/22/16 [id number]"INJECTION, METHYLPREDNISOLONE SODIUM SUCCINATE, UP TO Completed [id number] SELF ADMINISTERED) Completed 03/22/16 [id number]"INFUSION, NORMAL SALINE SOLUTION , 1000 CC" Completed 03/22/16 Emergency dept visit Completed 03/22/16 Encounters Encounter Location Arrival/Admit Date Discharge/Depart Date Attending Provider Departed Emergency Room [facility] 05/17/16 6:58pm 05/17/16 10: 38pm JACQUELINE LANDEROS MD Departed Emergency Room [facility] 03/22/16 10:32pm 03/22/16 11: 25pm JACQUELINE LANDEROS MD Departed Emergency Room [facility] 03/22/16 11:24am 03/22/16 1: 28pm FREEMAN CROCKETT DO Departed Emergency Room [facility] 03/01/16 7:04pm 03/01/16 7: 55pm JACQEULINE LANDEROS MD Recent Diagnosis
--- OUTSIDE RECORDS SUMMARY | 2016-08-21 19:19 | XMS REPORT | Continuity of Care Document ---
Author Author [facility] Organization [facility] Address Unknown Phone Unavailable Care Team Providers Care Convention Services Manager Name Role Phone SANDRA JASSO MD Primary Care Physician [phone] Insurance Providers Payer Name Policy Number Subscriber Name Relationship [facility] [id number] Luis Morgan 18 Self Problems Medical Problems Problem Onset Date Status Right hemiparesis Unknown Active Hypertension Unknown Active Hypercholesteremia Unknown Active Anxiety Unknown Active Depression Unknown Active History of stroke 02/28/2013 Active Gout attack Unknown Active Gout attack Unknown Active Migraine Unknown Active Migraine Unknown Active Migraine Unknown Active Sinusitis, acute frontal Unknown Active Surgical Problems Problem Onset Date [...] Mg PO DAILY PRN ANXIETY 12/19/13 Active Naproxen 1 Tab PO TWICE A DAY 12/19/13 Active Oxazepam 15 Mg PO Q8H @ 0100/0900/1700 12/19/13 Active Sumatriptan 1 Tab PO NEEDED PRN PAIN 12/19/13 Active Ondansetron 4 Mg PO EVERY 4 HOURS Oral Disintegrating Tablet 01/13/14 Active Amoxicillin/Potassium Clav 1 Tab PO EVERY 12 HOURS 20 Qty 01/13/14 Active Prednisone 60 Mg PO GIVE WITH BREAKFAST 15 Qty Take 3 (20 mg) tablets, by mouth, once a day with breakfast. 01/13/14 Active Social History Social History Problem Response Recorded Date/Time Smoking Status Unknown if ever smoked 01/13/2014 3:59pm Hx Alcohol Use No 01/13/2014 3:59pm Has the pt used tobacco in the last 12 months No 07/06/2013 8:06pm Query Response Start Date Stop Date Smoking Status Former smoker Hospital Discharge Instructions No hospital discharge instructions. Plan of Care No plan of care. Functional Status Query Response Date Recorded Physical Hygiene Self January 13, 2014 3:59pm Disabilities None January 13, 2014 3:59pm Devices Used None January 13, 2014 3:59pm Dressing Self January 13, 2014 3:59pm Ambulation Self January 13, 2014 3:59pm Diet Self January 13, 2014 3:59pm Mental Status Alert Oriented January 13, 2014 3:59pm Disabilities None January 13, 2014 3:59pm Devices Used None January 13, 2014 3:59pm Physical Hygiene Self January 13, 2014 3:59pm Dressing Self January 13, 2014 3:59pm Ambulation Self January 13, 2014 3:59pm Diet Self January 13, 2014 3:59pm Allergies, Adverse Reactions, Alerts Allergen Type Severity Reaction Status Last Updated No Known Allergies Active 11/24/13 Immunizations Name Given Type Hx Influenza Vaccination Y FEB 2013 Historical Hx Pneumococcal Vaccination Y 2011 Historical Hx Tetanus, Diptheria, Pertussis < 5 YRS Historical Hx Influenza Vaccination Y FEB 2013 Historical Hx Tetanus, Diptheria, Pertussis < 5 YRS Historical Vital Signs Acute Vital Signs Vital Response Date/Time Temperature (Fahrenheit) 98.4 deg F (96.8 - 99.1) Temperature (Calculated Celsius) 36.75534 degrees C (36.0 - 37.3) Pulse Rate (adult) 66 bpm (60 - 100) Respiratory Rate 14 breaths/min (10 - 20) O2 Sat by Pulse Oximetry 96 % (90 - 100) Blood Pressure 110/62 mm Hg Height 6 ft 0 in Weight 249 lb Body Mass Index 33.0 kg/m^2 Results [...] Has specimen been collected/obtained? Y Urine Specific [place] July 07, 2013 2:10am 1.010 L - [...] 14, 2013 12:55pm LAB TEST FORM REQUEST [id number] - HDL Cholesterol Direct March 01, 2013 [...] July 07, 2013 4:49am < 2 0-7 HB-Btt-X-Type Natriuretic Peptide May 06, 2011 8:22am 68 PG/ML N 0- 175 Rule in cut points: <50 years old=450; 50-75 years old=900; >75 years old=1800; When utilizing ProBNP rule-in cut points, adjustment for impaired renal function is typically not required. Procedures Procedure Status Date Provider(s) THER/PROPH/DIAG INJ SC/IM completed 11/24/13 THER/PROPH/DIAG INJ SC/IM completed 12/19/13 THER/PROPH/DIAG INJ SC/IM completed 12/19/13 Encounters Encounter Location Date/Time Departed Emergency Room [facility] 01/13/14 2:10pm Departed Emergency Room [facility] 12/19/13 7:00pm Registered Clinic [facility] 12/14/13 9:17am Departed Emergency Room [facility] 11/24/13 3:36am Recent Diagnosis
--- OUTSIDE RECORDS SUMMARY | 2016-08-21 19:19 | XMS REPORT | Referral Summary ---
Author Author [facility] Organization [facility] Address Unknown Phone Unavailable Care Team Providers Care Secretary Board Of Commissioners Name Role Phone Monique Holguin Primary Care Physician [phone] Encounter VC Date(s): 02/23/16 - 02/23/16 [facility] [address] [place] [id number] Discharge Diagnosis: Weight loss Discharge Disposition: 01-Home or Self Care Attending Physician: Angel Holguin MD Admitting Physician: Angel Holguin MD Vital Signs Most recent to 1 oldest [Reference Range]: Temperature Tympanic 36.9 degC [36.6-38.1 degC] (02/23/16 3:20 PM) Peripheral Pulse 78 bpm Rate [60-100 bpm] (02/23/16 3:20 PM) Blood Pressure 125/79 mmHg [90-140/60-90 mmHg] (02/23/16 3:20 PM) Problem List Condition Effective Dates Status [...] DAILY, # 30 tabs, 5 Refill(s), eRx: [facility] #[id number], TAKE ONE TABLET BY MOUTH DAILY Start Date: 11/11/15 Status: Ordered Flomax 0.4 mg oral capsule 0.4 mg 1 caps, Oral, Daily, # 30 caps, 6 Refill(s), Pharmacy: [facility] # [id number], 1 caps Oral Daily Start Date: 10/09/15 Status: Ordered Metoprolol Tartrate 25 mg oral tablet 25 mg 1 tabs, Oral, BID, # 60 tabs, 6 Refill(s), Pharmacy: [facility] # [id number], 1 tabs Oral BID,x30 days Start Date: 12/18/15 Stop Date: 07/15/16 Status: Ordered ondansetron 4 mg oral tablet 4 mg 1 tabs, Oral, q8hr, as needed for nausea/vomiting, # 20 tabs, 0 Refill(s), Pharmacy: [facility] #[id number], 1 tabs Oral q8hr,PRN:as needed for nausea/ vomiting Start Date: 10/09/15 Status: Ordered oxyCODONE-ibuprofen tabs, Oral, QID, 0 Refill(s) Start Date: 02/18/16 Status: Ordered topiramate 100 mg oral tablet 150 mg 1.5 tabs, Oral, BID, # 90 tabs, 6 Refill(s), Pharmacy: [facility] # [id number], 1.5 tabs Oral BID Start Date: 10/09/15 [...] 2011 Assessment and Plan Extracted from: Title: OV- Follow Up Weight Loss Author: Angel Holguin MD Date: 02/22 Impression and Plan Diagnosis Weight loss ([id number] R63.4, Discharge, Medical).
--- OUTSIDE RECORDS SUMMARY | 2016-08-21 19:19 | XMS REPORT | Continuity of Care Document ---
Author Author [facility] Organization [facility] Address Unknown Phone Unavailable Care Team Providers Care Car Shunter Name Role Phone ELISEO LEIGH MD Primary Care Physician [phone] Insurance Providers Payer Name Policy Number Subscriber Name Relationship [facility] [id number] Luis Morgan 20 Self Problems Medical Problems Problem Onset Date Status Right hemiparesis Unknown Active Hypertension Unknown Active Hypercholesteremia Unknown Active Anxiety Unknown Active Depression Unknown Active History of stroke 02/28/2013 Active Gout attack Unknown Active Gout attack Unknown Active Surgical Problems Problem Onset Date Recorded Date/Time Status Acute calculous cholecystitis ~07/06/2013 07/08/2013 4:54pm Active Medications Medication Dose Route Sig Days/Qty Instructions Order Date Discontinued Date Status [Antidepressant] 08/08/09 02/28/13 Discontinued [B/P Med, Slows Hr] 08/08/09 02/28/13 Discontinued Nitroglycerin 1 Tab SL NEEDED 08/08/09 02/28/13 Discontinued [Reflux Med] 08/08/09 02/28/13 Discontinued Metoprolol Succinate 25 Mg PO DAILY 02/28/13 Active Citalopram Hydrobromide 40 Mg PO DAILY 02/28/13 Active [Plavix] 11/24/13 Active [Flomax] 11/24/13 Active Hydrocodone/Acetaminophen 1-2 Tab PO Every 6 Hours PRN PAIN 30 Qty Active Social History Social History Problem Response Recorded Date/Time Smoking Status Former smoker 11/24/2013 3:36am Has the pt used tobacco in the last 12 months No 07/06/2013 8:06pm Query Response Start Date Stop Date Smoking Status Former smoker Hospital Discharge Instructions No hospital discharge instructions. Plan of Care No plan of care. Functional Status Query Response Date Recorded Physical Hygiene Self November 24, 2013 3:36am Disabilities None November 24, 2013 3:36am Devices Used Glasses November 24, 2013 3:36am Dressing Self November 24, 2013 3:36am Ambulation Self November 24, 2013 3:36am Diet Self November 24, 2013 3:36am Mental Status Alert Oriented November 24, 2013 4:10am Disabilities None November 24, 2013 3:36am Devices Used Glasses November 24, 2013 3:36am Physical Hygiene Self November 24, 2013 3:36am Dressing Self November 24, 2013 3:36am Ambulation Self November 24, 2013 3:36am Diet Self November 24, 2013 3:36am Allergies, Adverse Reactions, Alerts Allergen Type Severity [...] Vital Signs Vital Response Date/Time Temperature (Fahrenheit) 97.2 deg F (96.8 - 99.1) Temperature (Calculated Celsius) 36.28042 degrees C (36.0 - 37.3) Pulse Rate (adult) 71 bpm (60 - 100) Respiratory Rate 16 breaths/min (10 - 20) O2 Sat by Pulse Oximetry 95 % (90 - 100) Blood Pressure 119/71 mm Hg Height 5 ft 11 in Weight 247 lb Body Mass Index 34.0 kg/m^2 Results Test Source Date Result Interp. [...] 28, 2013 7:20pm < 0.012 ng/ml 0-0.12 Urine Bilirubin July 07, 2013 2:10am Negative [...] Has specimen been collected/obtained? Y Urine Specific [place] July 07, 2013 2:10am 1.010 L - [...] 28, 2013 7:31pm 79 mg/dL N 75-110 HDL Cholesterol Direct March 01, [...] July 07, 2013 4:49am < 2 0-7 LG-Ogv-M-Type Natriuretic Peptide May 06, 2011 8:22am 68 PG/ML N 0- 175 Rule in cut points: <50 years old=450; 50-75 years old=900; >75 years old=1800; When utilizing ProBNP rule-in cut points, adjustment for impaired renal function is typically not required. Procedures No known history of procedures. Encounters Encounter Location Date/Time Departed Emergency Room [facility] 11/24/13 3:36am Recent Diagnosis
--- OUTSIDE RECORDS SUMMARY | 2016-08-21 19:19 | XMS REPORT | Continuity of Care Document ---
Author Author [facility] Organization [facility] Address Unknown Phone Unavailable Care Team Providers Care Glass Production Machine Operator Name Role Phone ELISEO LEIGH MD Primary Care Physician [phone] Insurance Providers Payer Name Policy Number Subscriber Name Relationship [facility] [id number] Luis Morgan 20 Self Problems Medical Problems Problem Onset Date Status Right hemiparesis Unknown Active Hypertension Unknown Active Hypercholesteremia Unknown Active Anxiety Unknown Active Depression Unknown Active History of stroke 02/28/2013 Active Gout attack Unknown Active Gout attack Unknown Active Migraine Unknown Active Migraine Unknown Active Surgical Problems [...] Tab PO NEEDED PRN PAIN 12/19/13 Active Social History Social History Problem Response Recorded Date/Time Smoking Status Never smoker 12/19/2013 7:45pm Hx Alcohol Use No 12/19/2013 7:45pm Has the pt used tobacco in the last 12 months No 07/06/2013 8:06pm Query Response Start Date Stop Date Smoking Status Former smoker Hospital Discharge Instructions No hospital discharge instructions. Plan of Care No plan of care. Functional Status Query Response Date Recorded Physical Hygiene Self December 19, 2013 7:45pm Disabilities None December 19, 2013 7:45pm Devices Used None December 19, 2013 7:45pm Dressing Self December 19, 2013 7:45pm Ambulation Self December 19, 2013 7:45pm Diet Self December 19, 2013 7:45pm Mental Status Alert December 19, 2013 8:27pm Disabilities None December 19, 2013 7:45pm Devices Used None December 19, 2013 7:45pm Physical Hygiene Self December 19, 2013 7:45pm Dressing Self December 19, 2013 7:45pm Ambulation Self December 19, 2013 7:45pm Diet Self December 19, 2013 7:45pm Allergies, Adverse Reactions, Alerts Allergen Type Severity [...] F (96.8 - 99.1) Temperature (Calculated Celsius) 36.26328 degrees C (36.0 - 37.3) Pulse Rate (adult) 69 bpm (60 - 100) O2 Sat by Pulse Oximetry 95 % (90 - 100) Blood Pressure 121/65 mm Hg Height 6 ft 0 in Weight 227 lb Body Mass Index 30.0 kg/m^2 Results Test Source Date Result Interp. [...] Has specimen been collected/obtained? Y Urine Specific [place] July 07, 2013 2:10am 1.010 L - [...] 14, 2013 12:55pm LAB TEST FORM REQUEST [id number] - HDL Cholesterol Direct March 01, 2013 [...] July 07, 2013 4:49am < 2 0-7 QH-Vok-O-Type Natriuretic Peptide May 06, 2011 8:22am 70 PG/ML N 0- 175 Rule in cut points: <50 years old=450; 50-75 years old=900; >75 years old=1800; When utilizing ProBNP rule-in cut points, adjustment for impaired renal function is typically not required. Procedures Procedure Status Date Provider(s) THER/PROPH/DIAG INJ SC/IM completed 11/24/13 Encounters Encounter Location Date/Time Departed Emergency Room [facility] 12/19/13 7:00pm [facility] 12/14/13 9:17am Departed Emergency Room [facility] 11/24/13 3:36am Recent Diagnosis
[2016-08-21] MEDS ORDERED: NORMAL SALINE 1,000 ML IV ONE (19:22)
[2016-08-21] MEDS ORDERED: DiphenhydrAMINE 50 MG/ML INJECTION IV ONE (19:30)
[2016-08-21] MEDS ORDERED: KETOROLAC 30mg/ml INJECTION IV ONE (19:30)
[2016-08-21] MEDS ORDERED: ONDANSETRON 4mg/2ml INJECTION IV ONE (19:30)
[2016-08-21] MEDS ORDERED: PROMETHAZINE 25 MG INJECTION IV ONE (19:30)
[2016-08-21] MEDS ORDERED: SUMATRIPTAN 6 MG/0.5 ML INJECTION SQ ONE (19:30)
[2016-08-21] MEDS ORDERED: ALLO300T2 PO (19:31)
[2016-08-21] MEDS ORDERED: CLOP75TA33 PO (19:32)
[2016-08-21] MEDS ORDERED: [UNRECOGNIZED DRUG - CODE] PO (19:33)
[2016-08-21] MEDS ORDERED: [UNRECOGNIZED DRUG - CODE] PO (19:34)
[2016-08-21] MEDS ORDERED: NAPR500T6 PO (19:34)
[2016-08-21] MEDS ORDERED: PRAV20TA4 PO (19:35)
[2016-08-21] MEDS ORDERED: PROC10TA PO (19:36)
[2016-08-21] MEDS ORDERED: VERA-8 PO (19:36)
--- OUTSIDE RECORDS SUMMARY | 2016-08-21 19:38 | XMS REPORT | Continuity of Care Document ---
Author Author [facility] Organization [facility] Address Unknown Phone Unavailable Care Team Providers Care Quill Cleaner Name Role Phone SANDRA JASSO MD Primary Care Physician [phone] Insurance Providers Payer Name Policy Number Subscriber Name Relationship [facility] [id number] Luis Morgan 20 Self Problems Medical Problems [...] F (96.8 - 99.1) Temperature (Calculated Celsius) 36.73228 degrees C (36.0 - 37.3) Pulse Rate [...] Has specimen been collected/obtained? Y Urine Specific [place] July 07, 2013 2:10am 1.010 L - [...] 14, 2013 12:55pm LAB TEST FORM REQUEST [id number] - HDL Cholesterol Direct March 01, 2013 [...] July 07, 2013 4:49am < 2 0-7 CQ-Mmy-T-Type Natriuretic Peptide May 06, 2011 8:22am 70 PG/ML N 0- 175 Rule in cut points: <50 years old=450; 50-75 years old=900; >75 years old=1800; When utilizing ProBNP rule-in cut points, adjustment for impaired renal function is typically not required. Name: LUIS MORGAN Unit #: [id number] : 1960 Sex: M Loc / Svc: ED DOS: 01/13/14 Signed Report #: [id number] DIAGNOSTIC IMAGING REPORT TYPE OF EXAM: CT [...] ADDON completed 01/28/14 TX/PRO/DX INJ SAME DRUG MARKET RESEARCH SPECIALIST completed 01/28/14 THER/PROPH/DIAG IV INF INIT completed 02/17/14 TX/PRO/DX INJ NEW DRUG ADDON completed 02/17/14 TX/PRO/DX INJ NEW DRUG ADDON completed 02/17/14 TX/PRO/DX INJ NEW DRUG ADDON completed 02/17/14 EMERGENCY DEPT VISIT completed 02/17/14 946096"INJECTION, PROCHLORPERAZINE, UP TO 10 MG" completed 02/17/14"INJECTION, HYDROMORPHONE, UP TO 4 MG" completed 02/17/14 941430"INJECTION, KETOROLAC TROMETHAMINE, PER 15 MG" completed 02/17/14"INJECTION, MAGNESIUM SULFATE, PER 500 MG" completed 02/17/14"INFUSION, NORMAL SALINE SOLUTION , 250 CC" completed 02/17/14 Encounters Encounter Location Date/Time Departed Emergency Room [facility] 03/14/14 7:07am Departed Emergency Room [facility] 02/17/14 10:25am Departed Emergency Room [facility] 01/28/14 12:57pm Departed Emergency Room [facility] 01/13/14 2:10pm Departed Emergency Room [facility] 12/19/13 7:00pm Registered Clinic [facility] 12/14/13 9:17am Recent Diagnosis
--- OUTSIDE RECORDS SUMMARY | 2016-08-21 19:38 | XMS REPORT | Continuity of Care Document ---
Author Author [facility] Organization [facility] Address Unknown Phone Unavailable Care Team Providers Care Recreation Program Coordinator Name Role Phone SANDRA JASSO MD Primary Care Physician [phone] Insurance Providers Payer Name Policy Number Subscriber Name Relationship [facility] [id number] Luis Morgan 20 Self Advance Directives Directive [...] F (96.8 - 99.1) Temperature (Calculated Celsius) 36.27005 degrees C (36.0 - 37.3) Pulse Rate [...] Has specimen been collected/obtained? Y Urine Specific [place] July 07, 2013 2:10am 1.010 L - [...] 14, 2013 12:55pm LAB TEST FORM REQUEST [id number] - HDL Cholesterol Direct March 01, 2013 [...] July 07, 2013 4:49am < 2 0-7 FC-Elc-X-Type Natriuretic Peptide May 06, 2011 8:22am 70 PG/ML N 0- 175 Rule in cut points: <50 years old=450; 50-75 years old=900; >75 years old=1800; When utilizing ProBNP rule-in cut points, adjustment for impaired renal function is typically not required. Name: LUIS MORGAN Unit #: [id number] : 1960 Sex: M Loc / Svc: ED DOS: 01/13/14 Signed Report #: [id number] DIAGNOSTIC IMAGING REPORT TYPE OF EXAM: CT [...] sinusitis. There is a preliminary report by [facility] . Procedures Procedure Status Date Provider(s) THER/PROPH/DIAG INJ SC/IM completed 11/24/13 THER/PROPH/DIAG INJ SC/IM completed 12/19/13 THER/PROPH/DIAG INJ SC/IM completed 12/19/13 Encounters Encounter Location Date/Time Departed Emergency Room [facility] 01/28/14 12:57pm Departed Emergency Room [facility] 01/13/14 2:10pm Departed Emergency Room [facility] 12/19/13 7:00pm Registered Clinic [facility] 12/14/13 9:17am Departed Emergency Room [facility] 11/24/13 3:36am Recent Diagnosis
--- OUTSIDE RECORDS SUMMARY | 2016-08-21 19:39 | XMS REPORT | Continuity of Care Document ---
Author Author [facility] Organization [facility] Address Unknown Phone Unavailable Allergies Active Description [...] ADMIN TPA,RTPA IN DIF FAC W/IN 24HRS BUSINESS RELATIONS MANAGER 10/01/2013 Kendal Aguila MD V58.66 LONG-TERM (CURRENT) [...] Status Pt. Type Provider Facility Loc./Unit Complaint [id number] 06/28/2013 08:24:00 06/28/2013 23 :59:59 CLS Outpatient [id number] 06/14/2013 13:04:00 06/14/2013 23 :59:59 CLS Outpatient [id number] 06/04/2013 08:36:00 06/04/2013 23 :59:59 CLS Outpatient [id number] 05/23/2013 12:53:00 05/23/2013 23 :59:59 CLS Outpatient [id number] 04/25/2013 08:15:00 04/25/2013 23 :59:59 CLS Outpatient
--- OUTSIDE RECORDS SUMMARY | 2016-08-21 19:39 | XMS REPORT | Continuity of Care Document ---
Author Author [facility] Organization [facility] Address Unknown Phone Unavailable Support Name Relationship Address Phone ELISEO LEIGH MD Caregiver [address] [place] [address] [phone] SANDRA JASSO MD Caregiver [address] [place] [address] [phone] AMIE BASS MD Caregiver [address] [place] [address] [place] [phone] AYAKA MORGAN Next Of Kin [address] [place] [address] Insurance Providers Payer Name Policy Number Subscriber Name Relationship [facility] [id number] Luis Morgan 20 Self Advance Directives Directive [...] F (96.8 - 99.1) Temperature (Calculated Celsius) 37.67970 degrees C (36.0 - 37.3) Pulse Rate [...] 14, 2013 12:55pm LAB TEST FORM REQUEST [id number] - Lipase July 07, 2013 4:49am 91 [...] 16, 2014 12:29pm 5.9 % N 0-9.0 OG-Nff-A-Type Natriuretic Peptide June 16, 2014 12:29pm 52 [...] Has specimen been collected/obtained? Y Urine Specific [place] July 07, 2013 2:10am 1.010 L - [...] N 4.5-11.0 Name: LUIS MORGAN Unit #: [id number] : 1960 Sex: M Loc / Svc: ED DOS: 06/16/14 Signed Report #: [id number] DIAGNOSTIC IMAGING REPORT TYPE OF EXAM: CT [...] Encounters Encounter Location Date/Time Departed Emergency Room [facility] 06/16/14 12:07pm Recent Diagnosis
--- OUTSIDE RECORDS SUMMARY | 2016-08-21 19:40 | XMS REPORT | Continuity of Care Document ---
Author Author [facility] Organization [facility] Address Unknown Phone Unavailable Care Team Providers Care Tour Coordinator Name Role Phone SANDRA JASSO MD Primary Care Physician [phone] Insurance Providers Payer Name Policy Number Subscriber Name Relationship [facility] [id number] Luis Morgan 20 Self Advance Directives Directive [...] F (96.8 - 99.1) Temperature (Calculated Celsius) 36.56865 degrees C (36.0 - 37.3) Pulse Rate [...] Has specimen been collected/obtained? Y Urine Specific [place] July 07, 2013 2:10am 1.010 L - [...] 14, 2013 12:55pm LAB TEST FORM REQUEST [id number] - HDL Cholesterol Direct March 01, 2013 [...] July 07, 2013 4:49am < 2 0-7 XB-Sgd-S-Type Natriuretic Peptide May 06, 2011 8:22am 70 PG/ML N 0- 175 Rule in cut points: <50 years old=450; 50-75 years old=900; >75 years old=1800; When utilizing ProBNP rule-in cut points, adjustment for impaired renal function is typically not required. Name: LUIS MORGAN Unit #: [id number] : 1960 Sex: M Loc / Svc: ED DOS: 01/13/14 Signed Report #: [id number] DIAGNOSTIC IMAGING REPORT TYPE OF EXAM: CT [...] ADDON completed 01/28/14 TX/PRO/DX INJ SAME DRUG TERRAZZO WORKER completed 01/28/14 Encounters Encounter Location Date/Time Departed Emergency Room [facility] 02/17/14 10:25am Departed Emergency Room [facility] 01/28/14 12:57pm Departed Emergency Room [facility] 01/13/14 2:10pm Departed Emergency Room [facility] 12/19/13 7:00pm Registered Clinic [facility] 12/14/13 9:17am Departed Emergency Room [facility] 11/24/13 3:36am Recent Diagnosis
--- OUTSIDE RECORDS SUMMARY | 2016-08-21 19:41 | XMS REPORT | Continuity of Care Document ---
Author Author [facility] Organization [facility] Address Unknown Phone Unavailable Support Name Relationship Address Phone SANDRA JASSO MD Caregiver [address] [place] [phone] AMIE BASS MD Caregiver [address] [phone] AYAKA MORGAN Next Of Kin [address] [place] [id number] Insurance Providers Payer Name Policy Number Subscriber Name Relationship [facility] [id number] Luis Morgan 20 Self Advance Directives Directive [...] F (96.8 - 99.1) Temperature (Calculated Celsius) 36.62851 degrees C (36.0 - 37.3) Pulse Rate [...] 14, 2013 12:55pm LAB TEST FORM REQUEST [id number] - Lipase July 07, 2013 4:49am 91 [...] 16, 2014 12:29pm 5.9 % N 0-9.0 HU-Chl-G-Type Natriuretic Peptide June 16, 2014 12:29pm 54 [...] Has specimen been collected/obtained? Y Urine Specific [place] July 07, 2013 2:10am 1.010 L - [...] N 4.5-11.0 Name: LUIS MORGAN Unit #: [id number] : 1960 Sex: M Loc / Svc: ED DOS: 07/15/14 Signed Report #: [id number] DIAGNOSTIC IMAGING REPORT TYPE OF EXAM: CT [...] Encounters Encounter Location Date/Time Departed Emergency Room [facility] 07/15/14 12:59pm Departed Emergency Room [facility] 06/16/14 12:07pm Recent Diagnosis
--- OUTSIDE RECORDS SUMMARY | 2016-08-21 19:41 | XMS REPORT | Continuity of Care Document ---
Author Author [facility] Organization [facility] Address Unknown Phone Unavailable Care Team Providers Care Marble Finisher Name Role Phone ELISEO LEIGH MD Primary Care Physician [phone] Insurance Providers Payer Name Policy Number Subscriber Name Relationship [facility] [id number] Luis Morgan 20 Self Problems Medical Problems [...] F (96.8 - 99.1) Temperature (Calculated Celsius) 36.12735 degrees C (36.0 - 37.3) Pulse Rate [...] Has specimen been collected/obtained? Y Urine Specific [place] July 07, 2013 2:10am 1.010 L - [...] 14, 2013 12:55pm LAB TEST FORM REQUEST [id number] - HDL Cholesterol Direct March 01, 2013 [...] July 07, 2013 4:49am < 2 0-7 DW-Nfp-B-Type Natriuretic Peptide May 06, 2011 8:22am 70 PG/ML N 0- 175 Rule in cut points: <50 years old=450; 50-75 years old=900; >75 years old=1800; When utilizing ProBNP rule-in cut points, adjustment for impaired renal function is typically not required. Procedures Procedure Status Date Provider(s) THER/PROPH/DIAG INJ SC/IM completed 11/24/13 Encounters Encounter Location Date/Time Departed Emergency Room [facility] 12/19/13 7:00pm [facility] 12/14/13 9:17am Departed Emergency Room [facility] 11/24/13 3:36am Recent Diagnosis
--- OUTSIDE RECORDS SUMMARY | 2016-08-21 19:41 | XMS REPORT | Continuity of Care Document ---
Author Author [facility] Organization [facility] Address Unknown Phone Unavailable Care Team Providers Care Police Cadet Name Role Phone SANDRA JASSO MD Primary Care Physician [phone] Insurance Providers Payer Name Policy Number Subscriber Name Relationship [facility] [id number] Luis Morgan 20 Self Problems Medical Problems [...] F (96.8 - 99.1) Temperature (Calculated Celsius) 36.63815 degrees C (36.0 - 37.3) Pulse Rate [...] Has specimen been collected/obtained? Y Urine Specific [place] July 07, 2013 2:10am 1.010 L - [...] 14, 2013 12:55pm LAB TEST FORM REQUEST [id number] - HDL Cholesterol Direct March 01, 2013 [...] July 07, 2013 4:49am < 2 0-7 PA-Baj-J-Type Natriuretic Peptide May 06, 2011 8:22am 70 [...] Encounters Encounter Location Date/Time Departed Emergency Room [facility] 01/13/14 2:10pm Departed Emergency Room [facility] 12/19/13 7:00pm Registered Clinic [facility] 12/14/13 9:17am Departed Emergency Room [facility] 11/24/13 3:36am Recent Diagnosis
--- OUTSIDE RECORDS SUMMARY | 2016-08-21 19:41 | XMS REPORT | Continuity of Care Document ---
Author Author [facility] Organization [facility] Address Unknown Phone Unavailable Care Team Providers Care Wood Milling Machine Operator Name Role Phone ELISEO LEIGH MD Primary Care Physician [phone] Insurance Providers Payer Name Policy Number Subscriber Name Relationship [facility] [id number] Luis Morgan 20 Self Problems Medical Problems [...] F (96.8 - 99.1) Temperature (Calculated Celsius) 36.25289 degrees C (36.0 - 37.3) Pulse Rate [...] Has specimen been collected/obtained? Y Urine Specific [place] July 07, 2013 2:10am 1.010 L - [...] July 07, 2013 4:49am < 2 0-7 AJ-Hhb-Q-Type Natriuretic Peptide May 06, 2011 8:22am 70 [...]
[2016-08-21 20:19] LABS: ANION GAP 15 MEQ/L (5-15); BUN/CREATININE RATIO 13 RATIO (6-26); CALCIUM 9.7 MG/DL (8.4-10.2); CHLORIDE 113 MEQ/L (98-107); CO2 - CARBON DIOXIDE 21 MEQ/L (22-30); GLOMERULAR FILTRATION RATE 78; GLUCOSE 85 MG/DL (75-110); POTASSIUM 3.8 MEQ/L (3.6-5); SODIUM 149 MEQ/L (134-144)
--- NOTE | 2016-08-21 20:40 | NUR ---
STATUS PT REPORTS BILATERAL LEG CRAMPING AND SPASMS. PT STATES "I DON'T KNOW IF IT IS ONE OF THE MEDS I WAS GIVEN." STATUS REPORTED TO PT'S RNBRITTNI.
[2016-08-21] MEDS ORDERED: DIHYDROERGOTAMINE 1 MG/ML IM ONE (20:45)
[2016-08-21] MEDS ORDERED: LORAZEPAM 2 MG/ML INJECTION IV ONE (21:15)
--- NOTE | 2016-08-21 21:16 | ERPDOC ---
Departure Disposition Decision Date: August 21, 2016 Disposition Decision Time: 22:00 Disposition: 01 DISCHARGED HOME, SELF-CARE Impression Impression Impression: Primary Impression: Migraine headache Qualified Codes: G43.911 - Migraine, unspecified, intractable, with status migrainosus Severity: Severe Condition: Improved Seen By: Physician only Referrals: ELISEO LEIGH MD (Family) 1 Week Patient Instructions: Migraine Headache (ED) Problems/Meds/Labs Reviewed?: Yes Medications reviewed and manag: Yes Additional Instructions: We have treated your migraine headache tonight. Take your home medications as prescribed. Follow up with your doctor to see if another medication might be helpful to stop the migraines when they stop. Follow up care ordered?: Yes Mental Status: Alert, Oriented HPI - Headache General Chief Complaint: Headache Stated Complaint: MIGRAINE Time Seen by Provider: 19:21 Source: patient Exam Limitations: no limitations HPI - Headache Initial Comments 55yo man presents to the ER with a migraine GURROLA. Pt has a long h/o complex migraine HAs, including with hemiplegia. Pts GURROLA today is typical of his prior migraines. Home meds have been ineffective at treating his symptoms. Occurred At: home Onset: Gradual, Getting worse Duration: 12-24 hrs Pain Scale: Now & Worst: 8/10 Severity/Quality: severe, pressure Location: frontal Prior Headaches/Recent Trauma: frequent headaches Modifying Factors: immobilization, medication, rest, No: exposure to light, movement Associated Symptoms: nausea/vomiting Hx of Similar Symptoms: Yes Allergies: Coded Allergies: No Known Allergies (Unverified , 08/21/16) Past History Past Medical History Metabolic: gout, hypercholesterolemia, hypertension Cardiac: other Male: BPH Neurological: migraines Psychological: alcohol abuse, anxiety, depression Surgical History General: appendix, other, tonsils Family History Family PMH: FOUND: other Vaccines Hx Influenza Vaccination: Yes (01/06/15) Hx Pneumococcal Vaccination: Yes (2011) Social History Does patient use chewing tobac: No Substance Use Type: does not use Alcohol Intake: none Marital Status: Sexuality: female partner Housing: house Household Members: spouse Current Occupational Status: employed Review of Systems GI Upper Abdomen: nausea Neurological General: headache All other Systems All Other Systems: Reviewed and Negative Physical Exam General General Nourishment: well nourished, well developed, appears stated age, no acute distress, adult, obese General Body Habitus: well groomed Vitals and Pain First Documented Vital Signs Date Time Temp Pulse Resp B/P Pulse Ox O2 Delivery O2 Flow Rate FiO2 08/21/16 19:14 98.9 84 12 144/88 97 Room Air Weight: Kilograms: 107.200 Height (feet): 5 Height (inches): 11.00 Triage Pain Scale: RN VS reviewed by Provider: Yes Normal Exams: Head: Normocephalic w/o trauma Eyes: Pupils are PERRLA w/ EOMI, No scleral icterus, irritation ENMT: No facial trauma, nasal exudates, pharyngeal erythema Neck: Full range of motion, without adenopathy, JVD Lymphatic: No lymphadenopathy Musculoskeletal: No tenderness, or deformity noted Integumentary: No rashes, hives, or bruising noted Neurologic: Patient is alert, and oriented Psychiatric: Patient exhibits, appropriate attention Supervisory Exam Neck: trachea midline Chest: symmetric Abdomen: non-distended Differential Diagnoses Considering: Headache, Headache - Migraine, Headache - Tension/Muscle, Sinusitis - Sphenoid, Sinusitis - Maxillary, Sinusitis - Frontal Progress Results/Orders Orders Procedure Category Date Status Time Bmp - Basic Metabolic LAB 08/21/16 Complete Panel 19:22 Iv Lock (Ed Only) EDM 08/21/16 Transmitted 19:22 Normal Saline (Normal PHA 08/21/16 Complete Saline Iv) 19:22 Ketorolac (Toradol) PHA 08/21/16 Complete 19:30 Sumatriptan (Imitrex) PHA 08/21/16 Complete 19:30 Ondansetron Inj PHA 08/21/16 Complete (Zofran) 19:30 Promethazine PHA 08/21/16 Complete (Phenergan) 19:30 Diphenhydramine PHA 08/21/16 Complete (Benadryl) 19:30 Methylprednisolone PHA 08/21/16 Complete Sod Succ (Solu-Medrol 19:30 Dihydroergotamine PHA 08/21/16 Complete (Dhe) 20:45 Lorazepam (Ativan) PHA 08/21/16 Complete 21:15 Lab Results Laboratory Tests Test 08/21/16 19:47 Turbidity < 20 Sodium Level 149MEQ/L Potassium Level 3.8MEQ/L Chloride Level 113MEQ/L Carbon Dioxide Level 21MEQ/L Anion Gap 15MEQ/L Blood Urea Nitrogen 13.0MG/DL Creatinine 1.0MG/DL Glomerular Filtration Rate Calc 78 BUN/Creatinine Ratio 13RATIO Glucose Level 85MG/DL Calculated Osmolality 285MOSM/KG Calcium Level 9.7MG/DL Icterus Index < 2 Chemistry Specimen Hemolysis < 15 Medications Current ED Medications Sodium Chloride (Normal Saline IV) 1,000 ml @ 0 mls/hr Q0M ONCE IV Last administered on 08/21/16 19:56; Start 08/21/16 at 19:22; Stop 08/21/16 at 19:25 ; Status DC Ketorolac Tromethamine (Toradol) 30 mg O ONCE IV Last administered on 19:59; Start 08/21/16 at 19:30; Stop 08/21/16 at 19:31; Status DC Sumatriptan Succinate (Imitrex) 6 mg O ONCE SQ Last administered on 08/21/16 19:58; Start 08/21/16 at 19:30; Stop 08/21/16 at 19:31; Status DC Ondansetron HCl (Zofran) 4 mg O ONCE IV Last administered on 08/21/16 19:57; Start 08/21/16 at 19:30; Stop 08/21/16 at 19:31; Status DC Promethazine HCl (Phenergan) 25 mg O ONCE IV Last administered on 08/21/16 19 :59; Start 08/21/16 at 19:30; Stop 08/21/16 at 19:31; Status DC Diphenhydramine HCl (Benadryl) 50 mg O ONCE IV Last administered on 08/21/16 19:57; Start 08/21/16 at 19:30; Stop 08/21/16 at 19:31; Status DC Methylprednisolone Sodium Succinate (Solu-Medrol) 125 mg O ONCE IV Last administered on 08/21/16 19:57; Start 08/21/16 at 19:30; Stop 08/21/16 at 19:31 ; Status DC Dihydroergotamine Mesylate (Dhe) 1 mg O ONCE IM Last administered on 20:56; Start 08/21/16 at 20:45; Stop 08/21/16 at 20:46; Status DC Lorazepam (Ativan) 0.5 mg O ONCE IV Last administered on 08/21/16 21:23; Start 08/21/16 at 21:15; Stop 08/21/16 at 21:16; Status DC Progress Progress Initial interventions did not help pts GURROLA, but phenergn did cause muscle spasms in his calfs. DHE dropped GURROLA from 8-4. Will give ativan for spasms (and to possibly help with GURROLA) and give DHE more time to work. Pts GURROLA now 05/14. Pt requesting to leave. FREEMAN CROCKETT DO August 21, 2016 21:16
[2016-08-22 00:07] VITALS: BP 135/76; PULSE 74; RESP 14; TEMP 98.9; O2SAT 98
== END 2016-08-21 22:15 | disposition home or self-care (01) ==
LOC: ED 19:09
DX: G43.911 Migraine, unspecified, intractable, with status migrainosus (principal); M62.831 Muscle spasm of calf
CPT/HCPCS: 36000; 80048; 96361; 96372; 96374; 96375; 99284; J1110; J1200; J1885; J2060; J2405; J2550; J2930; J3030; J7030